=== PATIENT | male | born 1945 | race Caucasian/White ===

== ENCOUNTER 2018-08-19 10:39 | Inpatient (IN) ==
[2018-08-19] MEDS ORDERED: Sodium Chlor 0.9% Inj 500 ML IV.SIG ONE ×3 (11:17→20:00)
--- NOTE | 2018-08-19 11:23 | ED ---
HPI General Chief Complaint: Dizziness Stated Complaint: vomiting Time Seen by Provider: 08/19/18 10:42 Source: patient and RN notes reviewed Mode of arrival: EMS Limitations: no limitations History of Present Illness HPI Narrative: 73-year-old male presents to the emergency department via EMS for evaluation of dizziness. Patient states he was standing waiting for the past when he felt dizzy around 845 this morning.Patient states that he took a nitro which did not improve his dizziness. Patient then went home and took 2 more nitro which also did not improve his dizziness.Patient states that he feels like he is "swimming". He denies any syncope. States he had a hard time walking to the dizziness. He does report an episode of vomiting and diarrhea. Patient denies any chest pain or shortness breath. No headache. No abdominal pain. He reports generalized weakness. Patient states he has history of cardiac stents. [facility] in May which he states showed severe disease. Patient states that he is due to have a CABG the week of which is to be scheduled. He states that he recently had a carotid ultrasound, but does not know the results. He is due to have an echocardiogram next month. 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 Patient states that he has had small episodes of dizziness that lasted a few seconds in the past, but is never had dizziness like this that lasted so long. Patient reports chronic "smoker's cough". He denies any fevers or chills. Moderate severity. MD complaint: Reports dizziness and difficulty walking Onset (ago): hour(s) (3) Time: 08:45 Timing: sudden onset Description: Reports sense of movement, "room spinning", off-balance and difficulty walking History of trauma: No Severity: moderate Relieving factors: nothing Exacerbating factors: nothing Associated symptoms: Reports weakness, nausea and vomiting; Denies chest pain, confusion, diaphoresis, fever, chills, rash, shortness of breath, syncope and vision changes Related Data Home Medications Medication Instructions Recorded Confirmed aspirin 325 mg PO DAILY 08/19/18 08/19/18 bupropion HCl [Wellbutrin XL] mg PO QAM 08/19/18 nitroglycerin [Nitrostat] 0.4 mg SUBLINGUAL Q5-15M PRN 08/19/18 08/19/18 Allergies Allergy/AdvReac Type Severity Reaction Status Date / Time No Known Allergies Allergy Verified 08/19/18 10:47 Review of Systems ROS: all other systems reviewed are negative [facility] Medical History Medical History Colitis (Acute) Heart attack (Acute) High cholesterol (Acute) Hypertension (Acute) Surgical History Surgical History History of cardiac catheterization (Acute) Hx of tonsillectomy (Acute) Social History Social History Substance History: No History of Abuse Smoking Status: Heavy tobacco smoker Tobacco Type: Cigarettes How Often Do You Have a Drink Containing Alcohol: Never Recent Travel in [facility] within the Last 8 Weeks: No Recent Out of Country Travel within the Last 8 Weeks: No Immunization History Tetanus Immunization: >5 Years Exam Narrative Exam Narrative: GENERAL: Well-nourished, well-developed elderly male patient, afebrile. SKIN: Focused skin assessment warm/dry. No lacerations or abrasions. HEAD: Normocephalic. Atraumatic. EYES: No scleral icterus. No injection or drainage. Nystagmus noted. PERRLA. EOM intact. ENT: Mucosa pink and moist. No erythema or exudates. No uvular edema. No uvular , palatal, or tonsillar deviation. Airway patent. Nasal turbinates appear normal without nasal blood, purulent drainage or septal hematoma. Bilateral tympanic membranes clear without erythema or perforation. NECK: Supple, trachea midline. No JVD or lymphadenopathy. CARDIOVASCULAR: Regular rate and rhythm without murmurs, gallops, or rubs. RESPIRATORY: Breath sounds equal bilaterally. No accessory muscle use. Lung sounds are clear to auscultation GASTROINTESTINAL: Abdomen soft, non-tender, nondistended. MUSCULOSKELETAL: No cyanosis, or edema. Bilateral upper and lower extremity strength 5/5. All extremities are neurovascularly intact. BACK: Nontender without obvious deformity. No CVA tenderness. NEUROLOGICAL: Awake and alert. Cranial nerves II through XII intact. Motor and sensory grossly within normal limits. Five out of 5 muscle strength in all muscle groups. Normal speech. Finger to nose is normal bilaterally. Heel to lenz is normal bilaterally. Course Initial Documented Vital Signs Temperature 97.5 F L 08/19/18 10:47 Pulse Rate 91 H 08/19/18 10:47 Respiratory Rate 14 08/19/18 10:47 Blood Pressure 148/76 H 08/19/18 10:47 Pulse Oximetry 94 L 08/19/18 10:47 Last Documented Vital Signs Temperature 97.5 F L 08/19/18 10:47 Pulse Rate 88 08/19/18 11:40 Respiratory Rate 14 08/19/18 10:47 Blood Pressure 148/76 H 08/19/18 10:47 Pulse Oximetry 93 L 08/19/18 12:04 Medical Decision Making MDM Narrative Medical decision making narrative: 73-year-old male presents to the emergency department via EMS for evaluation of dizziness. Patient has significant cardiac history. IV access obtained. EKG shows sinus rhythm, heart rate 89, no acute ST changes. CBC, CMP, TSH, magnesium, CK, troponin, PTT, PT/INR, UA, chest x-ray, CT of the brain are ordered and pending. Patient is given NS 500 ml bolus. Orthostatic VS are ordered and pending. CBC shows hemoconcentration with hemoglobin of 17.2. CMP shows elevated BUN 20 , creatinine 1.68. TSH is 3.850. Magnesium is 1.6. CK is 82. Troponin is less than 0.02. PTT is 27.5. PT/INR is 11.2/1.1. Chest x-ray shows interstitial prominence of the lower lung zones of uncertain chronicity, otherwise no acute abnormality is identified. CT of the brain shows no acute intracranial abnormality. Orthostatic vital signs reveal slight orthostatic hypotension with a supine blood pressure 138/74 and standing blood pressure 118/ 57. Patient's oxygen saturation dropped to 88% on room air and patient was placed on 2 L O2 nasal cannula with improvement to 93%. CT of the chest is ordered and shows Spiculated noncalcified mass within the right lower lobe measuring 2.8 x 3.1 x 3.1 cm consistent with bronchogenic carcinoma until proven otherwise. This lesion is amenable to percutaneous biopsy if requested, Scattered emphysematous changes, Posterior bibasilar atelectatic changes, Biapical pleural thickening, Coronary artery ossification, 9.6 cm cystic lesion in the expected region of the upper pole of the right kidney, Small hiatal hernia, Degenerative changes throughout the thoracic spine. Patient will be admitted for dizziness, orthostatic hypotension, lung mass, hypoxia. Dr. Duke accepted admission. Medical Screen Exam Complete: Yes Emergency Medical Condition: Yes Differential Diagnosis Differential Diagnosis: ACS vs. metabolic derangement vs. orthostatic hypotension vs. vertigo vs. CVA vs. intracranial abnormality Lab Data Result diagrams: 08/19/18 11:15 08/19/18 11:15 Lab Results 08/19/18 08/19/18 08/19/18 Range/Units 11:15 11:15 11:15 WBC 8.1 (4.0-11.0) th/mm3 RBC 5.41 (4.50-5.90) mil/mm3 Hgb 17.2 H (13.0-17.0) gm/dL Hct 49.6 (39.0-51.0) % MCV 91.7 (80.0-100.0) fL MCH 31.7 (27.0-34.0) pg MCHC 34.6 (32.0-36.0) % RDW 14.8 (11.6-17.2) % Plt Count 146 L (150-450) th/mm3 MPV 7.8 (7.0-11.0) fL Neut % (Auto) 77.5 H (16.0-70.0) % Lymph % (Auto) 11.6 (9.0-44.0) % [place] % (Auto) 5.7 (0.0-8.0) % Eos % (Auto) 4.5 H (0.0-4.0) % Baso % (Auto) 0.7 (0.0-2.0) % Neut # (Auto) 6.3 (1.8-7.7) th/mm3 Lymph # (Auto) 0.9 L (1.0-4.8) th/mm3 [place] # (Auto) 0.5 (0.0-0.9) th/mm3 Eos # (Auto) 0.4 (0.0-0.4) th/mm3 Baso # (Auto) 0.1 (0.0-0.2) th/mm3 WBC Differential . Differential Comment Auto diff final PT 11.2 (9.8-11.6) sec INR 1.1 Ratio APTT 27.5 (24.3-30.1) sec Sodium 141 (136-145) meq/L Potassium 3.9 (3.5-5.1) meq/L Chloride 108 H (98-107) meq/L Carbon Dioxide 24.2 (21.0-32.0) meq/L Anion Gap 9 (5-15) meq/L BUN 20 H (7-18) mg/dL Creatinine 1.68 H (0.60-1.30) mg/dL Estimated GFR 40 L (>89) mL/min Random Glucose 105 (74-106) mg/dL Calcium 8.5 (8.5-10.1) mg/dL Magnesium 1.6 (1.5-2.5) mg/dL Total Bilirubin 0.8 (0.2-1.0) mg/dL AST 15 (15-37) U/L ALT 22 (12-78) U/L Alkaline Phosphatase 138 H (45-117) U/L Total Creatine Kinase 82 (39-308) U/L Troponin I Less than 0.02 L (0.02-0.05) ng/mL Total Protein 7.7 (6.4-8.2) g/dL Albumin 3.6 (3.4-5.0) g/dL TSH (0.358-3.740) uIU/mL 08/19/18 Range/Units 11:15 WBC (4.0-11.0) th/mm3 RBC (4.50-5.90) mil/mm3 Hgb (13.0-17.0) gm/dL Hct (39.0-51.0) % MCV (80.0-100.0) fL MCH (27.0-34.0) pg MCHC (32.0-36.0) % RDW (11.6-17.2) % Plt Count (150-450) th/mm3 MPV (7.0-11.0) fL Neut % (Auto) (16.0-70.0) % Lymph % (Auto) (9.0-44.0) % [place] % (Auto) (0.0-8.0) % Eos % (Auto) (0.0-4.0) % Baso % (Auto) (0.0-2.0) % Neut # (Auto) (1.8-7.7) th/mm3 Lymph # (Auto) (1.0-4.8) th/mm3 [place] # (Auto) (0.0-0.9) th/mm3 Eos # (Auto) (0.0-0.4) th/mm3 Baso # (Auto) (0.0-0.2) th/mm3 WBC Differential Differential Comment PT (9.8-11.6) sec INR Ratio APTT (24.3-30.1) sec Sodium (136-145) meq/L Potassium (3.5-5.1) meq/L Chloride (98-107) meq/L Carbon Dioxide (21.0-32.0) meq/L Anion Gap (5-15) meq/L BUN (7-18) mg/dL Creatinine (0.60-1.30) mg/dL Estimated GFR (>89) mL/min Random Glucose (74-106) mg/dL Calcium (8.5-10.1) mg/dL Magnesium (1.5-2.5) mg/dL Total Bilirubin (0.2-1.0) mg/dL AST (15-37) U/L ALT (12-78) U/L Alkaline Phosphatase (45-117) U/L Total Creatine Kinase (39-308) U/L Troponin I (0.02-0.05) ng/mL Total Protein (6.4-8.2) g/dL Albumin (3.4-5.0) g/dL TSH 3.850 H (0.358-3.740) uIU/mL Imaging Data Radiologist's impression: Chest X-Ray 08/19/18 11:17 CONCLUSION: Interstitial prominence in the lower lung zones of uncertain chronicity. Otherwise, no acute abnormality is identified. Head CT 08/19/18 11:17 CONCLUSION: No acute intracranial abnormality is identified. . Chest CT 08/19/18 12:07 CONCLUSION: 1. Spiculated noncalcified mass within the right lower lobe measuring 2.8 x 3.1 x 3.1 cm consistent with bronchogenic carcinoma until proven otherwise. This lesion is amenable to percutaneous biopsy if requested. 2. Scattered emphysematous changes. 3. Posterior bibasilar atelectatic changes. 4. Biapical pleural thickening. 5. Coronary artery ossification. 6. 9.6 cm cystic lesion in the expected region of the upper pole of the right kidney. 7. Small hiatal hernia. 8. Degenerative changes throughout the thoracic spine. Discharge Plan Discharge Disposition Patient Disposition: 30 Still Patient Discharge Details Diagnosis: Orthostatic hypotension, Dizziness, Lung mass, Hypoxia Physicians Team ED Provider: Calixto Echeverria ED Midlevel Provider: Anita Cervantes Primary Care Provider: [facility],Physician [facility] /Orders / Referrals /Forms Prescriptions: No Action aspirin 325 mg Tablet 325 mg PO DAILY RF: 0 nitroglycerin [Nitrostat] 0.4 mg Tablet, Sublingual 0.4 mg SUBLINGUAL Q5-15M PRN (Reason: Chest Pain) RF: 0 bupropion HCl [Wellbutrin XL] 300 mg Tablet Extended Release 24 Hr PO QAM RF: 0 Status ED Status: Admitted Patient
[2018-08-19 11:49] LABS: Baso # (Auto) 0.1 th/mm3 (0.0-0.2); Baso % (Auto) 0.7 % (0.0-2.0); Eos # (Auto) 0.4 th/mm3 (0.0-0.4); Eos % (Auto) 4.5 % (0.0-4.0); Hematocrit 49.6 % (39.0-51.0); Hemoglobin 17.2 gm/dL (13.0-17.0); Lymph # (Auto) 0.9 th/mm3 (1.0-4.8); Lymph % (Auto) 11.6 % (9.0-44.0); Mean Corpuscular HGB Conc 34.6 % (32.0-36.0); Mean Corpuscular Hemoglobin 31.7 pg (27.0-34.0); Mean Corpuscular Volume 91.7 fL (80.0-100.0); Mean Platelet Volume 7.8 fL (7.0-11.0); Mono # (Auto) 0.5 th/mm3 (0.0-0.9); Mono % (Auto) 5.7 % (0.0-8.0); Neut # (Auto) 6.3 th/mm3 (1.8-7.7); Neut % (Auto) 77.5 % (16.0-70.0); Platelet Count 146 th/mm3 (150-450); Red Blood Count 5.41 mil/mm3 (4.50-5.90); Red Cell Distribution Width 14.8 % (11.6-17.2); White Blood Count 8.1 th/mm3 (4.0-11.0)
--- NOTE | 2018-08-19 12:01 | XR ---
EXAM DATE: 08/19/2018 11:53 AM EDT AGE/SEX: 73 years / Male INDICATIONS: Chest pain and dizziness. CLINICAL DATA: This is the patient's initial encounter. Patient reports that signs and symptoms have been present for 1 day and indicates a pain score of 4/10. MEDICAL/SURGICAL HISTORY: None. None. COMPARISON: No prior exams available for comparison. FINDINGS: Portable AP view of the chest demonstrates a normal-sized cardiac silhouette. EKG lines overlie the p atient. There is interstitial prominence in the lower lung zones bilaterally. No effusion, consolidat ion, or pneumothorax is identified. Bones and soft tissues demonstrate no acute abnormality. CONCLUSION: Interstitial prominence in the lower lung zones of uncertain chronicity. Otherwise, no acute abnormal ity is identified. Electronically signed by: Sam Weldon MD 08/19/2018 12:00 PM EDT
[2018-08-19 12:02] LABS: Activated Partial Thrombo Time 27.5 sec (24.3-30.1); INR 1.1 Ratio; Prothrombin Time 11.2 sec (9.8-11.6)
[2018-08-19 12:17] LABS: Albumin 3.6 g/dL (3.4-5.0); Anion Gap 9 meq/L (5-15); Aspartate Aminotransferase 15 U/L (15-37); Blood Urea Nitrogen 20 mg/dL (7-18); Calcium 8.5 mg/dL (8.5-10.1); Carbon Dioxide 24.2 meq/L (21.0-32.0); Chloride 108 meq/L (98-107); Glomerular Filtration Rate 40 mL/min (>89); Glucose,Random 105 mg/dL (74-106); Magnesium 1.6 mg/dL (1.5-2.5); Potassium 3.9 meq/L (3.5-5.1); Sodium 141 meq/L (136-145)
[2018-08-19 12:23] LABS: Alanine Aminotransferase 22 U/L (12-78); Alkaline Phosphatase 138 U/L (45-117); Total Protein 7.7 g/dL (6.4-8.2)
[2018-08-19 12:42] LABS: Creatine Kinase 82 U/L (39-308)
--- NOTE | 2018-08-19 12:51 | CT ---
EXAM DATE: 08/19/2018 12:45 PM EDT AGE/SEX: 73 years / Male INDICATIONS: Patient complains of dizziness. CLINICAL DATA: This is the patient's initial encounter. Patient reports that signs and symptoms have been present for 1 day and indicates a pain score of 0/10. MEDICAL/SURGICAL HISTORY: Hypertension. Heart disease. [place] None. RADIATION DOSE: 54.93 CTDI (mGy) COMPARISON: No prior exams available for comparison. TECHNIQUE: CT of the head without contrast. Using automated exposure control and adjustment of the mA and/or kV according to patient size, radiation dose was kept as low as reasonably achievable to ob tain optimal diagnostic quality images. DICOM format image data is available electronically for revi ew and comparison. FINDINGS: Cerebrum: There is mild generalized atrophy and ventricles are normal given the degree of atrophy. M ild periventricular white matter change is present. There is calcification along the falx cerebri. No midline shift, mass lesion, hemorrhage or acute infarction. No extraaxial fluid collections are see n. Posterior Fossa: The cerebellum and brainstem demonstrate no acute abnormality. The 4th ventricle is midline. The cerebellopontine angle is within normal limits. Extracranial: The visualized sinuses are clear. Skull: The calvaria is intact. No skull fracture. CONCLUSION: No acute intracranial abnormality is identified. . Electronically signed by: Sam Weldon MD 08/19/2018 12:50 PM EDT
--- NOTE | 2018-08-19 13:02 | CT ---
EXAM DATE: 08/19/2018 12:48 PM EDT AGE/SEX: 73 years / Male INDICATIONS: Patient complains of dizziness. No chest complaints. CLINICAL DATA: This is the patient's initial encounter. Patient reports that signs and symptoms have been present for 1 day and indicates a pain score of 0/10. MEDICAL/SURGICAL HISTORY: Hypertension. Heart disease. [place] None. RADIATION DOSE: 8.51 CTDI (mGy) COMPARISON: No prior exams available for comparison. TECHNIQUE: Multiple contiguous axial images were obtained through the chest without contrast. Image s were obtained in suspended respiration using multiple row detector helical technique. Using automa jean carlos exposure control and adjustment of the mA and/or kV according to patient size, radiation dose was kept as low as reasonably achievable to obtain optimal diagnostic quality images. DICOM format imag e data is available electronically for review and comparison. FINDINGS: Lungs: There is a spiculated noncalcified mass within the right lower lobe measuring 2.8 x 3.1 x 3.1 cm consistent with bronchogenic carcinoma until proven otherwise. This lesion is amenable to percuta neous biopsy if requested. Scattered emphysematous changes are noted bilaterally. Posterior bibasilar atelectatic changes are noted bilaterally. Mediastinum: There is good visualization of the great vessels of the middle mediastinum. No evidenc e of mediastinal or hilar adenopathy/mass. Coronary artery calcifications are noted. Pleurae: Biapical pleural thickening is noted. Axillae: Unremarkable. Bony Structures: Degenerative changes are noted throughout the thoracic spine. Miscellaneous: The examination was extended to include the upper abdomen, and both adrenal glands ar e normal in size and configuration. A small hiatal hernia is noted. There is a 9.6 cm cystic lesion i n the expected region of the upper pole of the right kidney. CONCLUSION: 1. Spiculated noncalcified mass within the right lower lobe measuring 2.8 x 3.1 x 3.1 cm consistent with bronchogenic carcinoma until proven otherwise. This lesion is amenable to percutaneous biopsy if requested. 2. Scattered emphysematous changes. 3. Posterior bibasilar atelectatic changes. 4. Biapical pleural thickening. 5. Coronary artery ossification. 6. 9.6 cm cystic lesion in the expected region of the upper pole of the right kidney. 7. Small hiatal hernia. 8. Degenerative changes throughout the thoracic spine. Electronically signed by: Jori Day MD 08/19/2018 1:01 PM EDT
[2018-08-19] MEDS ORDERED: Bisacodyl 10 MG Supp RECTAL PRN (13:35)
[2018-08-19] MEDS ORDERED: Acetaminophen 325 MG Tablet PO PRN (13:37)
--- NOTE | 2018-08-19 13:41 | P.HP ---
History of Present Illness Primary Care Physician: [facility] History of Present Illness: 73-year-old male presents to the emergency department via EMS for evaluation of dizziness. Patient states he was standing waiting for the past when he felt dizzy around 845 this morning.Patient states that he took a nitro which did not improve his dizziness. Patient then went home and took 2 more nitro which also did not improve his dizziness.Patient states that he feels like he is "swimming ". He denies any syncope. States he had a hard time walking to the dizziness. He does report an episode of vomiting and diarrhea. Patient denies any chest pain or shortness breath. No headache. No abdominal pain. He reports generalized weakness. Patient states he has history of cardiac stents. [facility] which he states showed severe disease. Patient states that he is due to have a CABG the week of which is to be scheduled. He states that he recently had a carotid ultrasound, but does not know the results. He is due to have an echocardiogram next month. 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 Patient states that he has had small episodes of dizziness that lasted a few seconds in the past, but is never had dizziness like this that lasted so long. Patient reports chronic "smoker's cough". He denies any fevers or chills. Moderate severity. Reports sense of movement, "room spinning", off-balance and difficulty walking Associated symptoms: Reports weakness, nausea and vomiting; Denies chest pain, confusion, diaphoresis, fever, chills, rash, shortness of breath, syncope and vision changes Family history: Father melanoma, at the age of [address] Mother breast CA at 86 ya Brother kidney stones Sister of CT at age of 52, also had lupus and scarlet fever as a chils Review of Systems All other systems reviewed negative except as stated in HPI PMFSH - History History Provided By: Patient - Medical History Medical History: Medical History (Last Reviewed 08/19/18 @ 13:40 by Estela Duke MD) Colitis Heart attack High cholesterol Hypertension - Surgical History Surgical History: Surgical History (Last Reviewed 08/19/18 @ 13:40 by Estela Duke MD) History of cardiac catheterization Hx of tonsillectomy - Social History I have reviewed the patient's Social History: Yes - Tobacco History Tobacco Use In Past 30 Days: Yes Smoking Status: Heavy tobacco smoker (1 ppd for 26 years) Tobacco Type: Cigarettes - Alcohol History How Often Do You Have a Drink Containing Alcohol: Never - Substance Use History Substance History: No History of Abuse - Travel History Recent Travel in the [place] Within the Last 8 Weeks: No Recent Travel Out of the Country Within the Last 8 Weeks: No - Immunization History Tetanus Immunization: >5 Years Medications and Allergies Active Medications: Active Medications Acetaminophen (Tylenol) 650 mg PO Q4H PRN PRN Reason: Temp > 100.4 Al Hydroxide/Mg Hydroxide (Milk Of Magnesia Liq) 30 ml PO Q12H PRN PRN Reason: Mild Constipation Aspirin (Aspirin) 325 mg PO DAILY TIMOTHY Bisacodyl (Dulcolax Supp) 10 mg RECTAL DAILY PRN PRN Reason: SEVERE CONSITIPATION Enoxaparin Sodium (Lovenox Inj) 30 mg SQ DAILY TIMOTHY Lactulose (Lactulose Liq) 30 ml PO DAILY PRN PRN Reason: SEVERE CONSITIPATION Ondansetron HCl (Zofran Inj) 4 mg IV.PUSH Q6H PRN PRN Reason: NAUSEA OR VOMITING Senna/Docusate Sodium (Brenda-Colace) 1 tab PO BID TIMOTHY Sennosides (Senokot) 17.2 mg PO Q12H PRN PRN Reason: Moderate Constipation Sodium Chloride (Ns Flush) 2 ml IV.FLUSH PRN PRN PRN Reason: FLUSH AFTER USING IV ACCESS Allergies Allergy/AdvReac Type Severity Reaction Status Date / Time No Known Allergies Allergy Verified 08/19/18 10:47 Home Medications Medication Instructions Recorded Confirmed Type aspirin 325 mg PO DAILY 08/19/18 08/19/18 History bupropion HCl [Wellbutrin XL] mg PO QAM 08/19/18 History nitroglycerin [Nitrostat] 0.4 mg SUBLINGUAL Q5-15M PRN 08/19/18 08/19/18 History Exam Vital signs: Vital Signs 08/19/18 10:47 08/19/18 11:40 08/19/18 12:04 Temperature 97.5 F L Pulse Rate 91 H 88 Respiratory Rate 14 Blood Pressure 148/76 H Pulse Oximetry 94 L 93 L Intake & Output 08/18/18 08/19/18 08/19/18 18:59 06:59 18:59 Intake Total 500 / 500 Balance 500 / 500 Weight 79.379 kg Intake: IV 500 / 500 NS Inj 500 ML @ Wide Open IV. 500 / 500 SIG BOLUS ONE Rx#:[id number] Narrative: GENERAL: 73 yo male, appears in nad. SKIN: Warm and dry. HEAD: Atraumatic. Normocephalic. EYES: Pupils equal and round. No scleral icterus. No injection or drainage. ENT: No nasal bleeding or discharge. Mucous membranes pink and moist. NECK: Trachea midline. No JVD. CARDIOVASCULAR: Regular rate and rhythm. RESPIRATORY: No accessory muscle use. Clear to auscultation. Breath sounds equal bilaterally. GASTROINTESTINAL: Abdomen soft, non-tender, nondistended. Hepatic and splenic margins not palpable. MUSCULOSKELETAL: Extremities without clubbing, cyanosis, or edema. No obvious deformities. NEUROLOGICAL: Awake and alert. No obvious cranial nerve deficits. Motor grossly within normal limits. Five out of 5 muscle strength in the arms and legs. Normal speech. PSYCHIATRIC: Appropriate mood and affect; insight and judgment normal. Results - Labs CBC & Chem 7: 08/19/18 11:15 08/19/18 11:15 Labs: Laboratory Results - last 24 hr 08/19/18 08/19/18 08/19/18 11:15 11:15 11:15 WBC 8.1 RBC 5.41 Hgb 17.2 H Hct 49.6 MCV 91.7 MCH 31.7 MCHC 34.6 RDW 14.8 Plt Count 146 L MPV 7.8 Neut % (Auto) 77.5 H Lymph % (Auto) 11.6 [place] % (Auto) 5.7 Eos % (Auto) 4.5 H Baso % (Auto) 0.7 Neut # (Auto) 6.3 Lymph # (Auto) 0.[address] # (Auto) 0.5 Eos # (Auto) 0.4 Baso # (Auto) 0.1 WBC Differential . Differential Comment Auto diff final PT 11.2 INR 1.1 APTT 27.5 Sodium 141 Potassium 3.9 Chloride 108 H Carbon Dioxide 24.2 Anion Gap 9 BUN 20 H Creatinine 1.68 H Estimated GFR 40 L Random Glucose 105 Calcium 8.5 Magnesium 1.6 Total Bilirubin 0.8 AST 15 ALT 22 Alkaline Phosphatase 138 H Total Creatine Kinase 82 Troponin I Less than 0.02 L Total Protein 7.7 Albumin 3.6 TSH 08/19/18 11:15 WBC RBC Hgb Hct MCV MCH MCHC RDW Plt Count MPV Neut % (Auto) Lymph % (Auto) [place] % (Auto) Eos % (Auto) Baso % (Auto) Neut # (Auto) Lymph # (Auto) [place] # (Auto) Eos # (Auto) Baso # (Auto) WBC Differential Differential Comment PT INR APTT Sodium Potassium Chloride Carbon Dioxide Anion Gap BUN Creatinine Estimated GFR Random Glucose Calcium Magnesium Total Bilirubin AST ALT Alkaline Phosphatase Total Creatine Kinase Troponin I Total Protein Albumin TSH 3.850 H - Imaging Impressions Chest X-Ray 08/19/18 11:17 CONCLUSION: Interstitial prominence in the lower lung zones of uncertain chronicity. Otherwise, no acute abnormality is identified. Head CT 08/19/18 11:17 CONCLUSION: No acute intracranial abnormality is identified. . Chest CT 08/19/18 12:07 CONCLUSION: 1. Spiculated noncalcified mass within the right lower lobe measuring 2.8 x 3.1 x 3.1 cm consistent with bronchogenic carcinoma until proven otherwise. This lesion is amenable to percutaneous biopsy if requested. 2. Scattered emphysematous changes. 3. Posterior bibasilar atelectatic changes. 4. Biapical pleural thickening. 5. Coronary artery ossification. 6. 9.6 cm cystic lesion in the expected region of the upper pole of the right kidney. 7. Small hiatal hernia. 8. Degenerative changes throughout the thoracic spine. Caprini VTE Risk Assessment Caprini VTE Risk Assessment: Moderate/High Risk (score >= 2) Caprini Risk Assessment Model: Point Value = 1 Point Value = 2 Point Value = 3 Point Value = 5 Age 41-60 Minor surgery BMI > 25 kg/m2 Swollen legs Varicose veins or History of unexplained or recurrent spontaneous Oral contraceptives or hormone replacement Sepsis (< 1 month) Serious lung disease, including pneumonia (< 1 month) Abnormal pulmonary function Acute myocardial infarction Congestive heart failure (< 1 month) History of inflammatory bowel disease Medical patient at bed rest Age 61-74 Arthroscopic surgery Major open surgery (> 45 min) Laparoscopic surgery (> 45 min) Malignancy Confined to bed (> 72 hours) Immobilizing plaster cast Central venous access Age >= 75 History of VTE Family history of VTE Factor V Leiden Prothrombin [id number] Lupus anticoagulant Anticardiolipin antibodies Elevated serum homocysteine Heparin-induced thrombocytopenia Other congenital or acquired thrombophilia Stroke (< 1 month) Elective arthroplasty Hip, pelvis, or leg fracture Acute spinal cord injury (< 1 month) Prophylaxis Regimen: Total Risk Factor Score Risk Level Prophylaxis Regimen 0-1 Low Early ambulation 2 Moderate Order ONE of the following: *Sequential Compression Device (SCD) *Heparin 5000 units SQ BID 3-4 Higher Order ONE of the following medications: *Heparin 5000 units SQ TID *Enoxaparin/Lovenox 40 mg SQ daily (WT < 150 kg, CrCl > 30 mL/min) *Enoxaparin/Lovenox 30 mg SQ daily (WT < 150 kg, CrCl > 10-29 mL/min) *Enoxaparin/Lovenox 30 mg SQ BID (WT < 150 kg, CrCl > 30 mL/min) AND/OR *Sequential Compression Device (SCD) 5 or more Highest Order ONE of the following medications: *Heparin 5000 units SQ TID (Preferred with Epidurals) *Enoxaparin/Lovenox 40 mg SQ daily (WT < 150 kg, CrCl > 30 mL/min) *Enoxaparin/Lovenox 30 mg SQ daily (WT < 150 kg, CrCl > 10-29 mL/min) *Enoxaparin/Lovenox 30 mg SQ BID (WT < 150 kg, CrCl > 30 mL/min) AND *Sequential Compression Device (SCD) Assessment and Plan - Plan CAD with 3 vessel disease and plans for CABG this month at [place] HTN HLD Hypoxia with new lung mass on CT scan chest Syncope/ dizziness Orthostatic hypotension JASON poss on CKD ( unknown baseline kidney function) Cr on admission 1.68 likely dehydration Hemoconcentration with hemoglobin of 17.2. Tobaccoism CT of the chest reviewed and findings discussed with ED PA shows Spiculated noncalcified mass within the right lower lobe measuring 2.8 x 3.1 x 3.1 cm consistent with bronchogenic carcinoma until proven otherwise. This lesion is amenable to percutaneous biopsy if requested, Scattered emphysematous changes, Posterior bibasilar atelectatic changes, Biapical pleural thickening, Coronary artery ossification, 9.6 cm cystic lesion in the expected region of the upper pole of the right kidney, Small hiatal hernia, Degenerative changes throughout the thoracic spine. CT of the brain shows no acute intracranial abnormality. Do 2D ECHO , carotid US. Consult neurology Patient's oxygen saturation dropped to 88% on room air and patient was placed on 2 L O2 nasal cannula with improvement to 93%, continue O2 supplement keep O2 sat> 92%. Duonebs as need. Consult pulm for further eval Consult cardiology as patient with extensive cardiac h/o Start gentle IVF. Monitor kidney function if doesn't improve do kidney US and consult nephro. UA is normal. Avoid nephrotoxic agents Careful with fluids unknown if patient has CHF, CXR and clinically no signs of CHF. Will check BNP Nicotine patch, counselled extensively Check lipid panel, a1c, cmp, cbc. Restart home meds once reconcile meds done. [facility] p[facility] teds. lovenox per renal dose Discussed Condition With: patient, nurse, ED physician / PA
[2018-08-19] MEDS ORDERED: Enoxaparin Inj 40 MG/0.4 ML Syringe SQ SCH (13:45)
[2018-08-19 13:54] LABS: Bilirubin,Urine Negative (Negative); Clarity,Urine Clear (Clear); Color,Urine Yellow (Yellw/Straw); Glucose,Urine (UA) Negative (Negative); Hyaline Casts,Urine 3 /lpf (0-3); Leukocyte Esterase,Urine Negative (Negative); Mucus,Urine Few /lpf (Occasional); Nitrite,Urine Negative (Negative); Specific Gravity,Urine 1.017 (1.002-1.035)
[2018-08-19 15:04] LABS: ABG Base Excess -2.7 mmol/L (-2-2); ABG PCO2 37 mmHg (38-42); ABG PO2 67 mmHg (61-120)
[2018-08-19] MEDS: Azithromycin Inj 500 MG in Sodium Chlor 0.9% Inj 250 ML IV.SIG SCH (17:49)
[2018-08-19] MEDS: MethylPREDNISolone Sod Succinate Inj 125 MG/2 ML Vial IV.PUSH SCH (17:50)
[2018-08-19] MEDS: Budesonide-Formoterol 160/4.5 MCG 6 GM Inhaler INH SCH ×2 (17:50→21:35)
[2018-08-19] MEDS ORDERED: Sodium Chloride 0.9% 2 ML Flush PRN IV.FLUSH (19:27)
[2018-08-19] MEDS ORDERED: Metoprolol Tartrate 25 MG Tablet PO SCH (21:00)
--- NOTE | 2018-08-19 21:11 | MB ---
cc: Kadi Jones MD DATE: 08/19/2018 HISTORY OF PRESENT ILLNESS: The patient is a 73-year-old male with past medical history of hypertension, coronary artery disease, hyperlipidemia, who presented to [facility] ED via EMS for evaluation of dizziness. The patient denies any syncope or loss of consciousness. [facility] On arrival to the ED, a CT scan of the chest without contrast was obtained which showed a spiculated noncalcified mass within the right lower lobe measuring 2.8 x 3.1 x 3.1 cm, scattered emphysematous changes and bibasilar reticular atelectatic changes. He had ABG on room air, which showed a pH of 7.38, CO2 37, PaO2 67, bicarbonate of 22 and saturation 88%. The patient is currently on 4 liters oxygen with saturation of 96%. His laboratory data showed acute kidney injury with a BUN of 20 and creatinine 1.68. Due to his dizziness, CT scan of the brain was obtained which showed no acute intracranial findings. Pulmonary Medicine was consulted for abnormal CT chest and COPD. He denies any use of oxygen at home. The patient denies any chest pain or worsening of shortness of breath from baseline. In addition, he denies any hemoptysis, weight loss or changes in appetite. He remains an active smoker with a [id number] history of smoking. He reports using Symbicort and rescue inhaler approximately 6 months ago. He denies any cough or any constitutional symptoms. In addition, he denies any wheezing or any prior history of intubation. PAST MEDICAL HISTORY: Significant for hypertension, COPD, hyperlipidemia, coronary artery disease. PAST SURGICAL HISTORY: Previous cardiac catheterization, previous tonsillectomy. FAMILY HISTORY: Melanoma runs in the family. In addition, his mom had breast cancer. ALLERGIES: NO KNOWN DRUG ALLERGIES. HOME MEDICATIONS: Include: 1. Nitrostat sublingual. 2. Aspirin. 3. Wellbutrin. SOCIAL HISTORY: Quit smoking in 2006, active smoker with [id number] history of smoking. REVIEW OF SYSTEMS: As per HPI. The rest of review of systems unremarkable. PHYSICAL EXAMINATION: GENERAL: A 73-year-old male lying in bed, in no acute respiratory distress. VITAL SIGNS: Afebrile, pulse of 94, respiratory rate 15, blood pressure 133/64, saturation 96% on 4 liter oxygen. HEENT: Atraumatic, normocephalic. Pupils are equal, round, reactive to accommodation. Extraocular muscles intact. Conjunctivae pink. Nonicteric sclerae. Oral mucosa within normal. NECK: Supple. No JVD, adenopathy or thyromegaly. Trachea in the midline. CARDIOVASCULAR: Regular rate and rhythm. Normal S1, S2. No murmurs, rubs or gallops noted. PULMONARY: Bilateral equal air entry with few coarse breath sounds. ABDOMEN: Soft, nontender. No distention. Positive bowel sounds. EXTREMITIES: No cyanosis, clubbing or edema. NEUROLOGIC: No focal sensory deficit. LABORATORY DATA: WBC 8.1, hemoglobin 17, hematocrit 49, platelet count 146. Sodium 141, potassium 3.9, chloride 108, CO2 24, BUN 20, creatinine 1.68, glucose of 105. BNP 39. TSH 3.85. RADIOGRAPHIC STUDIES: CT scan of the brain showed no acute intracranial findings. CT chest showed a right lower lobe lung mass spiculated 2.8 x 3.1 x 3.1 cm and COPD changes. ASSESSMENT AND PLAN: 1. Acute hypoxemic respiratory insufficiency. 2. Chronic obstructive pulmonary disease exacerbation. 3. Right lower lobe spiculated noncalcified mass 2.8 x 3.1 x 3.1 cm. Rule out bronchogenic carcinoma. 4. Bibasilar atelectasis. 5. Active tobacco use. 6. Coronary artery disease. 7. Hypertension. 8. Hyperlipidemia. RECOMMENDATIONS: 1. We will continue with oxygen and maintain sats above 92%. 2. Place the patient on bronchodilators in the form of DuoNeb every 4 hours plus every 2 hours p.r.n. for shortness of breath and will add Symbicort 160/4.5 2 puffs b.i.d. 3. Start Solu-Medrol 60 mg IV every 8 hours. 4. BiPAP p.r.n. for respiratory distress. 5. Place on empiric antibiotics, azithromycin and monitor for signs of infection, which include fever and WBC. 6. Check sputum culture with Gram stain. 7. PFT to assess the severity of his obstructive lung disease. 8. CT scan of the chest reviewed and discussed with the patient. He will need either a CT-guided lung biopsy or fiberoptic bronchoscopy with transbronchial biopsy to rule out a bronchogenic carcinoma. The patient states that he will think about both procedures and give us his decision in the next 24-48 hours. 9. We will need staging workup once pathology confirms bronchogenic carcinoma. 10. The patient is counseled regarding smoking cessation. 11. Further recommendations will be based on hospital course. Thank you for this consultation and allowing us to participate in this patient's care. MD MARCOS Crow/giovanni , 03:29 PM , 03:42 PM
[2018-08-19] MEDS: Sod Chloride 0.9% Inj 1,000 ML IV.SIG SCH (21:32)
[2018-08-19] MEDS: Senna/Docusate Sodium 8.6/50 MG Tablet PO SCH (21:33)
[2018-08-19] MEDS: Sodium Chloride 0.9% 2 ML Flush BID IV.FLUSH SCH (21:35)
[2018-08-19] MEDS: Metoprolol Tartrate 25 MG Tablet PO SCH (22:24)
--- NOTE | 2018-08-19 22:52 | ECG ---
Date Performed: 08/19/2018 Time Performed: 19:47:40 PTAGE: 73 years EKG: Sinus rhythm NORMAL ECG PREVIOUS TRACING : 08/19/2018 10.48 DOCTOR: Eleuterio Francois Interpretating Date/Time 08/19/2018 22:51:20
--- NOTE | 2018-08-19 23:29 | MB ---
cc: Caitlyn Ryan MD DATE: 08/19/2018 REASON FOR CONSULTATION: Chest pain. HISTORY OF PRESENT ILLNESS: Mr. Newton is a pleasant 73-year-old man who does have a prior history of multiple cardiac stents. He reports that he has chest pain with brisk walking. He underwent a cardiac catheterization and, in fact, has severe multivessel disease. He is scheduled in [place] for a CABG. He reports he was started on some long-acting nitroglycerin and has been remarkably stable. He, in fact, denies any episodes of chest pain to me. The patient had some dizziness this morning that did not improve over the course of the morning and he subsequently presented into the emergency room. The patient has extremely poor p.o. intake of fluids. He still essentially refuses to drink any water and is drinking some more tea here. PAST MEDICAL HISTORY: Significant for hypertension, hyperlipidemia, CAD with multiple stents, colitis. CURRENT MEDICATIONS: Include: 1. Albuterol. 2. Aspirin. 3. Zithromax 4. Lovenox. 5. Lisinopril. 6. Metoprolol. 7. Nicotine patch. REVIEW OF SYSTEMS: Except as mentioned in the HPI, all 12 systems are negative. PHYSICAL EXAMINATION: VITAL SIGNS: 94, 133/64 with a heart rate of 87. GENERAL: He is an overweight man who is in no apparent distress. NECK: Free from JVD. LUNGS: Bilaterally clear to auscultation. CARDIOVASCULAR: He has a normal S1 and S2. I did not appreciate any murmurs, rubs or gallops. ABDOMEN: Soft. EXTREMITIES: Free from edema. DIAGNOSTIC DATA: Chest CT does show a right lower lobe spiculated mass of 3 x 3 x 2.8 cm. LABORATORY DATA: Lab values significant for troponin of less than 0.02. His creatinine is 1.68. EKG shows normal sinus rhythm without any acute ST changes. IMPRESSION: Coronary artery disease - stable angina - The patient does have extremely stable angina and has been well managed as an outpatient. After discussion, he is not really interested in moving up his surgery at this time. We will continue with conservative medical management while he awaits his bypass later in August. Orthostasis - The patient has essentially low to no p.o. fluid intake except for some caffeine. I am going to hydrate him and we will follow along. His rhythm is otherwise stable. I suspect that this is the most likely etiology to his dizziness. Spiculated mass - This is being worked up by the primary team. MD YAMILET Kate/shashank , 05:51 PM , 06:00 PM
--- NOTE | 2018-08-19 23:52 | ECG ---
Date Performed: 08/19/2018 Time Performed: 10:48:32 PTAGE: 73 years EKG: Sinus rhythm INCOMPLETE RBBB NO PREVIOUS TRACING DOCTOR: Eleuterio Francois Interpretating Date/Time 08/19/2018 23:51:34
[2018-08-20 00:56] LABS: Cholesterol 119 mg/dL (120-200); Triglycerides 88 mg/dL (42-150)
[2018-08-20 00:59] LABS: Chol/HDL Ratio 4.28 Ratio; HDL Cholesterol 27.8 mg/dL (40.0-60.0); LDL Cholesterol,Calculated 74 mg/dL (0-99)
[2018-08-20] MEDS: MethylPREDNISolone Sod Succinate Inj 125 MG/2 ML Vial IV.PUSH SCH ×2 (02:01→09:43)
[2018-08-20] MEDS: Sod Chloride 0.9% Inj 1,000 ML IV.SIG SCH ×2 (06:13→15:30)
[2018-08-20 07:26] LABS: Baso # (Auto) 0.1 th/mm3 (0.0-0.2); Baso % (Auto) 0.8 % (0.0-2.0); Eos # (Auto) 0.4 th/mm3 (0.0-0.4); Eos % (Auto) 4.9 % (0.0-4.0); Lymph # (Auto) 0.9 th/mm3 (1.0-4.8); Lymph % (Auto) 12.3 % (9.0-44.0); Mean Corpuscular HGB Conc 34.6 % (32.0-36.0); Mean Corpuscular Hemoglobin 31.5 pg (27.0-34.0); Mean Corpuscular Volume 91.1 fL (80.0-100.0); Mean Platelet Volume 7.7 fL (7.0-11.0); Mono # (Auto) 0.4 th/mm3 (0.0-0.9); Neut # (Auto) 5.7 th/mm3 (1.8-7.7); Platelet Count 131 th/mm3 (150-450); Red Blood Count 5.06 mil/mm3 (4.50-5.90); Red Cell Distribution Width 14.4 % (11.6-17.2); White Blood Count 7.4 th/mm3 (4.0-11.0)
[2018-08-20 07:57] LABS: Albumin 3.1 g/dL (3.4-5.0); Anion Gap 9 meq/L (5-15); Aspartate Aminotransferase 13 U/L (15-37); Blood Urea Nitrogen 15 mg/dL (7-18); Carbon Dioxide 23.1 meq/L (21.0-32.0); Chloride 108 meq/L (98-107); Glomerular Filtration Rate 53 mL/min (>89); Glucose,Random 84 mg/dL (74-106); Potassium 4.1 meq/L (3.5-5.1); Sodium 140 meq/L (136-145)
[2018-08-20 08:01] LABS: Alanine Aminotransferase 17 U/L (12-78); Alkaline Phosphatase 130 U/L (45-117); Total Protein 6.7 g/dL (6.4-8.2)
[2018-08-20] MEDS ORDERED: Gadobutrol PF 10 MMOL/10 ML Vial (for RAD) IV.SIG ONE (08:06)
--- NOTE | 2018-08-20 08:58 | MR ---
EXAM DATE: 08/20/2018 8:37 AM EDT AGE/SEX: 73 years / Male INDICATIONS: Dizziness. CLINICAL DATA: This is the patient's initial encounter. Patient reports that signs and symptoms have been present for 2 days and indicates a pain score of 0/10. MEDICAL/SURGICAL HISTORY: Hypertension. Tonsillectomy. COMPARISON: [facility] [place], CT HEAD W/O CONTRAST, 08/19/2018. . TECHNIQUE: Multiplanar, multisequence examination of the brain was performed without and with 10CC ml Gadavist (gadobutrol) contrast as a single exam dose. FINDINGS: Cerebrum: There is mild generalized atrophy with ventricular size within normal limits given the degr ee of atrophy. No midline shift, mass lesion, hemorrhage or acute infarction. No extraaxial fluid c ollections are seen. The pituitary gland and suprasellar cistern are normal in configuration. White Matter: There is mild periventricular and subcortical white matter signal change. Posterior Fossa: The cerebellum and brainstem demonstrate no acute abnormality. The 4th ventricle is midline. The cerebellopontine angle is within normal limits. The cerebellar tonsils are normal in p osition. Diffusion Imaging: No areas of restricted diffusion are seen. Extracranial: The visualized sinuses are clear. Post contrast no areas of abnormal enhancement are identified. CONCLUSION: 1. No acute intracranial abnormality is identified. 2. Chronic changes include generalized atrophy and mild periventricular white matter change characte ristic of chronic microvascular ischemia. Electronically signed by: Sam Weldon MD 08/20/2018 8:57 AM EDT
--- NOTE | 2018-08-20 09:01 | MR ---
EXAM DATE: 08/20/2018 8:37 AM EDT AGE/SEX: 73 years / Male INDICATIONS: Dizziness. CLINICAL DATA: This is the patient's initial encounter. Patient reports that signs and symptoms have been present for 2 days and indicates a pain score of 0/10. MEDICAL/SURGICAL HISTORY: Hypertension. Tonsillectomy. COMPARISON: [facility] [place], MR HEAD W & W/O CONTRAST, 08/20/2018. . TECHNIQUE: 3D [id number] MRA was performed. Source images, multiplanar STS MIP, and 3D volum e MIP reconstructions were reviewed. FINDINGS: There is excellent visualization of the major intracranial arteries out to the second-order branch ve ssels. There is no evidence for aneurysm, vessel truncation or stenosis, and no evidence for vascula r malformation. There are patent posterior communicating arteries. CONCLUSION: No acute intracranial vascular abnormality is identified. Electronically signed by: Sam Weldon MD 08/20/2018 8:59 AM EDT
--- NOTE | 2018-08-20 09:06 | MR ---
EXAM DATE: 08/20/2018 8:38 AM EDT AGE/SEX: 73 years / Male INDICATIONS: Dizziness. CLINICAL DATA: This is the patient's initial encounter. Patient reports that signs and symptoms have been present for 2 days and indicates a pain score of 0/10. MEDICAL/SURGICAL HISTORY: Hypertension. Tonsillectomy. COMPARISON: No prior exams available for comparison. TECHNIQUE: 10cc ml Gadavist (gadobutrol) contrast infused MRA (single exam dose) of the extracrania l circulation was performed using a neurovascular coil. Postprocessing was performed, including rota ting sub-volume maximum intensity projections of each carotid artery, rotating full-volume maximum in tensity projections of both carotid arteries, sagittal and coronal sliding thin-slab reformations of each carotid artery, and left oblique sliding thin-slab reformation through the aortic arch to includ e the origin of the arch branch vessels. FINDINGS: Aortic Arch : Arch demonstrates no significant abnormality. Origin of the great vessels is within no rmal limits. Right Carotid : The common carotid artery demonstrates no significant stenosis. There is minimal lum inal irregularity and narrowing in the carotid bulb without significant stenosis. The distal internal carotid artery and external carotid artery are within normal limits. Left Carotid : The common carotid artery is within normal limits. There is eccentric narrowing in th e carotid bulb and proximal internal carotid artery into focal locations. The more distal causes more luminal narrowing with approximately 40% luminal narrowing as measured using NASCET criteria. Vertebrals : The vertebral arteries have a symmetric diameter. No stenotic lesions are seen. CONCLUSION: 1. Eccentric narrowing likely related to atherosclerotic plaque in the left carotid bulb and proxima l internal carotid artery with estimated 40% stenosis. 2. Minimal atherosclerotic disease in the right carotid bulb. There is no significant stenosis on th e right. Percent stenosis is calculated using the diameter of the stenotic region over the diameter of the nor mal distal internal carotid artery Electronically signed by: Sam Weldon MD 08/20/2018 9:05 SUSAN TOVAR
[2018-08-20] MEDS: Sodium Chloride 0.9% 2 ML Flush BID IV.FLUSH SCH ×2 (09:29→21:18)
[2018-08-20] MEDS: Aspirin 325 MG Tablet PO SCH (09:41)
[2018-08-20] MEDS: Lisinopril 5 MG Tablet PO SCH (09:41)
[2018-08-20] MEDS: Enoxaparin Inj 30 MG/0.3 ML Syringe SQ SCH (09:42)
[2018-08-20] MEDS: Senna/Docusate Sodium 8.6/50 MG Tablet PO SCH ×2 (09:42→21:17)
[2018-08-20] MEDS: Metoprolol Tartrate 25 MG Tablet PO SCH ×2 (09:42→21:17)
--- NOTE | 2018-08-20 09:55 | P.PN ---
Subjective Interval history: Follow-up for COPD exacerbation, right lower lobe lung mass concerning for bronchogenic carcinoma. Patient is resting in bed. On nasal cannula. No acute concerns. Physical Exam Vital signs: Vital Signs 08/19/18 10:47 08/19/18 11:40 08/19/18 12:04 Temperature 97.5 F L Pulse Rate 91 H 88 Respiratory Rate 14 Blood Pressure 148/76 H Pulse Oximetry 94 L 93 L 08/19/18 14:10 08/19/18 20:00 08/19/18 20:46 Temperature 98.1 F Pulse Rate 94 H 81 82 Respiratory Rate 15 16 20 Blood Pressure 133/64 115/60 Pulse Oximetry 96 94 L 93 L 08/20/18 00:00 08/20/18 04:00 08/20/18 08:00 Temperature 97.8 F 98.4 F 98.3 F Pulse Rate 71 76 75 Respiratory Rate 16 16 18 Blood Pressure 111/65 131/71 131/70 Pulse Oximetry 92 L 90 L 92 L 08/20/18 08:44 Temperature Pulse Rate 76 Respiratory Rate 16 Blood Pressure Pulse Oximetry 99 Intake & Output 08/19/18 08/20/18 08/20/18 18:59 06:59 18:59 Intake Total 1480 / 1480 750 / 750 Output Total 575 / 575 Balance 1480 / 1480 175 / 175 Weight 79.379 kg 80.8 kg Intake: IV 1000 / 1000 750 / 750 Azithromycin Inj 500 MG In NS 250 / 250 Inj 250 ML @ 250 mls/hr IV.SIG Q24H TIMOTHY Rx#:[id number] NS Inj 500 ML @ 999 mls/hr IV. 1000 / 1000 500 / 500 SIG BOLUS ONE Rx#:[id number] Oral 480 / 480 Output: Urine 575 / 575 Other: # Voids 2 Date of Last Bowel Movement 08/19/18 Narrative: GENERAL: Alert, NAD. SKIN: Warm and dry. HEAD: Normocephalic. EYES: No scleral icterus. No injection or drainage. NECK: Supple, trachea midline. No JVD or lymphadenopathy. CARDIOVASCULAR: Regular rate and rhythm without murmurs, gallops, or rubs. RESPIRATORY: Moderate air entry, breath sounds somewhat coarse anteriorly, diminished diffusely in the posterior lung peck. GASTROINTESTINAL: Abdomen soft, non-tender, nondistended. MUSCULOSKELETAL: No cyanosis, or edema. BACK: Nontender without obvious deformity. No CVA tenderness. Results - Labs CBC & Chem 7: 08/20/18 07:00 08/20/18 07:00 Laboratory Results - last 24 hr 08/19/18 08/19/18 08/19/18 11:15 11:15 11:15 WBC 8.1 RBC 5.41 Hgb 17.2 H Hct 49.6 MCV 91.7 MCH 31.7 MCHC 34.6 RDW 14.8 Plt Count 146 L MPV 7.8 Neut % (Auto) 77.5 H Lymph % (Auto) 11.6 [place] % (Auto) 5.7 Eos % (Auto) 4.5 H Baso % (Auto) 0.7 Neut # (Auto) 6.3 Lymph # (Auto) 0.9 L [place] # (Auto) 0.5 Eos # (Auto) 0.4 Baso # (Auto) 0.1 WBC Differential . Differential Comment Auto diff final PT 11.2 INR 1.1 APTT 27.5 Puncture Site Patient Temperature O2 Saturation ABG pH ABG pCO2 ABG pO2 ABG HCO3 ABG O2 Content ABG Base Excess ABG Methemoglobin Ace Test Hemoglobin Carboxyhemoglobin Inspired O2 Critical Value Sodium 141 Potassium 3.9 Chloride 108 H Carbon Dioxide 24.2 Anion Gap 9 BUN 20 H Creatinine 1.68 H Estimated GFR 40 L Random Glucose 105 Calcium 8.5 Magnesium 1.6 Total Bilirubin 0.8 AST 15 ALT 22 Alkaline Phosphatase 138 H Total Creatine Kinase 82 Troponin I Less than 0.02 L B-Natriuretic Peptide Total Protein 7.7 Albumin 3.6 Triglycerides Cholesterol LDL Cholesterol, Calc HDL Cholesterol Cholesterol/HDL Ratio TSH Urine Color Urine Clarity Urine pH Ur Specific [place] Urine Protein Urine Glucose (UA) Urine Ketones Urine Occult Blood Urine Nitrate Urine Bilirubin Urine Urobilinogen Ur Leukocyte Esterase Urine RBC Urine WBC Hyaline Casts Urine Mucus Micro UA Comment Ur Microscopic Review Urine Culture Comments 08/19/18 08/19/18 08/19/18 11:15 11:15 13:00 WBC RBC Hgb Hct MCV MCH MCHC RDW Plt Count MPV Neut % (Auto) Lymph % (Auto) [place] % (Auto) Eos % (Auto) Baso % (Auto) Neut # (Auto) Lymph # (Auto) [place] # (Auto) Eos # (Auto) Baso # (Auto) WBC Differential Differential Comment PT INR APTT Puncture Site Patient Temperature O2 Saturation ABG pH ABG pCO2 ABG pO2 ABG HCO3 ABG O2 Content ABG Base Excess ABG Methemoglobin Ace Test Hemoglobin Carboxyhemoglobin Inspired O2 Critical Value Sodium Potassium Chloride Carbon Dioxide Anion Gap BUN Creatinine Estimated GFR Random Glucose Calcium Magnesium Total Bilirubin AST ALT Alkaline Phosphatase Total Creatine Kinase Troponin I B-Natriuretic Peptide 39 Total Protein Albumin Triglycerides Cholesterol LDL Cholesterol, Calc HDL Cholesterol Cholesterol/HDL Ratio TSH 3.850 H Urine Color Yellow Urine Clarity Clear Urine pH 5.0 Ur Specific [place] 1.017 Urine Protein Negative Urine Glucose (UA) Negative Urine Ketones Negative Urine Occult Blood Negative Urine Nitrate Negative Urine Bilirubin Negative Urine Urobilinogen 2.0 H Ur Leukocyte Esterase Negative Urine RBC 1 Urine WBC 1 Hyaline Casts 3 Urine Mucus Few H Micro UA Comment Culture not ind Ur Microscopic Review Not Reportable Urine Culture Comments Culture not ind 08/19/18 08/19/18 08/20/18 14:48 18:35 00:00 WBC RBC Hgb Hct MCV MCH MCHC RDW Plt Count MPV Neut % (Auto) Lymph % (Auto) [place] % (Auto) Eos % (Auto) Baso % (Auto) Neut # (Auto) Lymph # (Auto) [place] # (Auto) Eos # (Auto) Baso # (Auto) WBC Differential Differential Comment PT INR APTT Puncture Site Right radial Patient Temperature 98.6 O2 Saturation 88 L* ABG pH 7.38 ABG pCO2 37 L ABG pO2 67 ABG HCO3 22 ABG O2 Content 21.7 H ABG Base Excess -2.7 L ABG Methemoglobin 0.6 Ace Test Present Hemoglobin 17.4 H Carboxyhemoglobin 4.3 H Inspired O2 21 Critical Value Yes Sodium Potassium Chloride Carbon Dioxide Anion Gap BUN Creatinine Estimated GFR Random Glucose Calcium Magnesium Total Bilirubin AST ALT Alkaline Phosphatase Total Creatine Kinase Troponin I Less than 0.02 L Less than 0.02 L B-Natriuretic Peptide Total Protein Albumin Triglycerides 88 Cholesterol 119 L LDL Cholesterol, Calc 74 HDL Cholesterol 27.8 L Cholesterol/HDL Ratio 4.28 TSH Urine Color Urine Clarity Urine pH Ur Specific [place] Urine Protein Urine Glucose (UA) Urine Ketones Urine Occult Blood Urine Nitrate Urine Bilirubin Urine Urobilinogen Ur Leukocyte Esterase Urine RBC Urine WBC Hyaline Casts Urine Mucus Micro UA Comment Ur Microscopic Review Urine Culture Comments 08/20/18 08/20/18 07:00 07:00 WBC 7.4 RBC 5.06 Hgb 16.0 Hct 46.0 MCV 91.1 MCH 31.5 MCHC 34.6 RDW 14.4 Plt Count 131 L MPV 7.7 Neut % (Auto) 77.0 H Lymph % (Auto) 12.3 [place] % (Auto) 5.0 Eos % (Auto) 4.9 H Baso % (Auto) 0.8 Neut # (Auto) 5.7 Lymph # (Auto) 0.9 L [place] # (Auto) 0.4 Eos # (Auto) 0.4 Baso # (Auto) 0.1 WBC Differential . Differential Comment Auto diff final PT INR APTT Puncture Site Patient Temperature O2 Saturation ABG pH ABG pCO2 ABG pO2 ABG HCO3 ABG O2 Content ABG Base Excess ABG Methemoglobin Ace Test Hemoglobin Carboxyhemoglobin Inspired O2 Critical Value Sodium 140 Potassium 4.1 Chloride 108 H Carbon Dioxide 23.1 Anion Gap 9 BUN 15 Creatinine 1.33 H Estimated GFR 53 L Random Glucose 84 Calcium 8.0 L Magnesium Total Bilirubin 1.0 AST 13 L ALT 17 Alkaline Phosphatase 130 H Total Creatine Kinase Troponin I B-Natriuretic Peptide Total Protein 6.7 D Albumin 3.1 L Triglycerides Cholesterol LDL Cholesterol, Calc HDL Cholesterol Cholesterol/HDL Ratio TSH Urine Color Urine Clarity Urine pH Ur Specific [place] Urine Protein Urine Glucose (UA) Urine Ketones Urine Occult Blood Urine Nitrate Urine Bilirubin Urine Urobilinogen Ur Leukocyte Esterase Urine RBC Urine WBC Hyaline Casts Urine Mucus Micro UA Comment Ur Microscopic Review Urine Culture Comments - Imaging Impressions Chest X-Ray 08/19/18 11:17 CONCLUSION: Interstitial prominence in the lower lung zones of uncertain chronicity. Otherwise, no acute abnormality is identified. Head CT 08/19/18 11:17 CONCLUSION: No acute intracranial abnormality is identified. . Chest CT 08/19/18 12:07 CONCLUSION: 1. Spiculated noncalcified mass within the right lower lobe measuring 2.8 x 3.1 x 3.1 cm consistent with bronchogenic carcinoma until proven otherwise. This lesion is amenable to percutaneous biopsy if requested. 2. Scattered emphysematous changes. 3. Posterior bibasilar atelectatic changes. 4. Biapical pleural thickening. 5. Coronary artery ossification. 6. 9.6 cm cystic lesion in the expected region of the upper pole of the right kidney. 7. Small hiatal hernia. 8. Degenerative changes throughout the thoracic spine. Head MRI 08/20/18 00:00 CONCLUSION: 1. No acute intracranial abnormality is identified. 2. Chronic changes include generalized atrophy and mild periventricular white matter change characteristic of chronic microvascular ischemia. Head MRA 08/20/18 00:00 CONCLUSION: No acute intracranial vascular abnormality is identified. Neck MRA 08/20/18 00:00 CONCLUSION: 1. Eccentric narrowing likely related to atherosclerotic plaque in the left carotid bulb and proximal internal carotid artery with estimated 40% stenosis. 2. Minimal atherosclerotic disease in the right carotid bulb. There is no significant stenosis on the right. Percent stenosis is calculated using the diameter of the stenotic region over the diameter of the normal distal internal carotid artery - Procedures Echo 08/20/2018 The left ventricular systolic function is low normal with an estimated ejection fraction in the range of 50- 55%. Normal left ventricular size. Wall thickness is normal. Trace mitral valve regurgitation. There is mild tricuspid valve regurgitation. The estimated pulmonary arterial pressure is 29.9 mmHg. Assessment and Plan - Plan Mr. Newton is a pleasant 73-year-old male who was admitted to the hospital due to dizziness that has been getting worse. Patient has a history of CAD and he is being evaluated for CABG next month. ED workup indicated right lower lobe lung mass. Pulmonary was consulted. Acute COPD exacerbation Right lung mass -Right lower lobe spiculated noncalcified mass 2.8 x 3.1 x 3.1 cm - concerning for bronchogenic carcinoma -CT guided biopsy - hopefully tomorrow. -DuoNeb, Supplemental O2, Symbicort and Azithromycin. Continue Solu-Medrol. Coronary artery disease -[facility] Cardiology evaluated patient here. -Echo shows EF 50-55%. Continue Aspirin. We can likely change ASA to 81mg Qday. Hypertension - Continue lisinopril 5 mg daily, metoprolol tartrate 12.5 mg twice daily. Full code Lovenox 30 mg daily.
--- NOTE | 2018-08-20 10:13 | US ---
EXAM DATE: 08/20/2018 10:09 AM EDT AGE/SEX: 73 years / Male INDICATIONS: Syncope. CLINICAL DATA: This is the patient's initial encounter. Patient reports that signs and symptoms have been present for 1 day and indicates a pain score of 2/10. MEDICAL/SURGICAL HISTORY: Hypertension. Colitis. Heart attack. High cholesterol. Tonsillectomy . Cardiac catheterization. COMPARISON: No prior exams available for comparison. VELOCITY PARAMETERS: ICA/CCA Ratio: Right 0.97 , Left 1.2 ICA: Right 142 cm/sec, Left 179 cm/sec CCA: Right 146 cm/sec, Left 148 cm/sec ECA: Right 217 cm/sec, Left 206 cm/sec Vertebral: Right 59 cm/sec antegrade, Left 65 cm/sec antegrade FINDINGS: Right Carotid: Moderate arteriosclerotic plaque is visualized.The waveforms are within normal limits . Left Carotid: Moderate arteriosclerotic plaque is visualized. The waveforms are within normal limits . Other: None. CONCLUSION: No evidence of flow-limiting carotid stenosis. Electronically signed by: Sam Garza MD 08/20/2018 10:12 AM EDT
--- NOTE | 2018-08-20 10:34 | P.PNCA ---
Subjective Interval history: pt without complaints Medications and Allergies Active Medications: Active Medications Acetaminophen (Tylenol) 650 mg PO Q4H PRN PRN Reason: Temp > 100.4 Al Hydroxide/Mg Hydroxide (Milk Of Magnesia Liq) 30 ml PO Q12H PRN PRN Reason: Mild Constipation Albuterol (Duoneb Neb (Prn)) 1 ampul NEB Q2HR NEB PRN PRN Reason: DYSPNEA Albuterol (Duoneb Neb (Steph)) 1 ampul NEB Q6HR WHILE AWAKE NEB [facility] Last Admin: 08/20/18 08:43 Dose: 1 ampul Aspirin (Aspirin) 325 mg PO DAILY [facility] Last Admin: 08/20/18 09:41 Dose: 325 mg Bisacodyl (Dulcolax Supp) 10 mg RECTAL DAILY PRN PRN Reason: SEVERE CONSITIPATION Budesonide/Formoterol Fumarate (Symbicort 160/4.5 Mcg Inh) 2 puff INH BID [facility] Last Admin: 08/19/18 21:35 Dose: 2 puff Enoxaparin Sodium (Lovenox Inj) 30 mg SQ DAILY [facility] Last Admin: 08/20/18 09:42 Dose: 30 mg Azithromycin 500 mg/ Sodium (Chloride) 250 mls @ 250 mls/hr IV.SIG Q24H [facility] Last Infusion: 08/19/18 21:50 Dose: Infused Sodium Chloride (Ns Inj) 1,000 mls @ 100 mls/hr IV.SIG .Q10H [facility] Last Admin: 08/20/18 06:13 Dose: 100 mls/hr Lactulose (Lactulose Liq) 30 ml PO DAILY PRN PRN Reason: SEVERE CONSITIPATION Lisinopril (Prinivil) 5 mg PO DAILY [facility] Last Admin: 08/20/18 09:41 Dose: 5 mg Methylprednisolone Sodium Succinate (Solumedrol Inj) 60 mg IV.PUSH Q8H [facility] Last Admin: 08/20/18 09:43 Dose: 60 mg Metoprolol Tartrate (Lopressor) 12.5 mg PO BID [facility] Last Admin: 08/20/18 09:42 Dose: 12.5 mg Miscellaneous (Pill Splitter) 1 each OTHER UNSCH PRN PRN Reason: PILL SPLITTING Nicotine (Habitrol 21 Mg Patch.24 Hr) 1 patch T-DERMAL DAILY [facility] Last Admin: 08/20/18 09:43 Dose: 1 patch Nitroglycerin (Nitrostat Sl) 0.4 mg SL Q5M PRN PRN Reason: CHEST PAIN Ondansetron HCl (Zofran Inj) 4 mg IV.PUSH Q6H PRN PRN Reason: NAUSEA OR VOMITING Patch Removal (Remove Old Patch) 1 each T-DERMAL DAILY [facility] Senna/Docusate Sodium (Brenda-Colace) 1 tab PO BID [facility] Last Admin: 08/20/18 09:42 Dose: 1 tab Sennosides (Senokot) 17.2 mg PO Q12H PRN PRN Reason: Moderate Constipation Sodium Chloride (Ns Flush) 2 ml IV.FLUSH PRN PRN PRN Reason: FLUSH AFTER USING IV ACCESS Sodium Chloride (Ns Flush) 2 ml IV.FLUSH BID [facility] Last Admin: 08/19/18 21:35 Dose: Not Given Sodium Chloride (Ns Flush) 2 ml IV.FLUSH PRN PRN PRN Reason: FLUSH AFTER USING IV ACCESS Allergies Allergy/AdvReac Type Severity Reaction Status Date / Time No Known Allergies Allergy Verified 08/19/18 10:47 Home Medications Medication Instructions Recorded Confirmed Type aspirin 325 mg PO DAILY 08/19/18 08/19/18 History bupropion HCl [Wellbutrin XL] mg PO QAM 08/19/18 History nitroglycerin [Nitrostat] 0.4 mg SUBLINGUAL Q5-15M PRN 08/19/18 08/19/18 History Physical Exam Vital signs: Vital Signs 08/19/18 10:47 08/19/18 11:40 08/19/18 12:04 Temperature 97.5 F L Pulse Rate 91 H 88 Respiratory Rate 14 Blood Pressure 148/76 H Pulse Oximetry 94 L 93 L 08/19/18 14:10 08/19/18 20:00 08/19/18 20:46 Temperature 98.1 F Pulse Rate 94 H 81 82 Respiratory Rate 15 16 20 Blood Pressure 133/64 115/60 Pulse Oximetry 96 94 L 93 L 08/20/18 00:00 08/20/18 04:00 08/20/18 08:00 Temperature 97.8 F 98.4 F 98.3 F Pulse Rate 71 76 75 Respiratory Rate 16 16 18 Blood Pressure 111/65 131/71 131/70 Pulse Oximetry 92 L 90 L 92 L 08/20/18 08:44 Temperature Pulse Rate 76 Respiratory Rate 16 Blood Pressure Pulse Oximetry 99 Intake & Output 08/19/18 08/20/18 08/20/18 18:59 06:59 18:59 Intake Total 1480 / 1480 750 / 750 Output Total 575 / 575 Balance 1480 / 1480 175 / 175 Weight 79.379 kg 80.8 kg Intake: IV 1000 / 1000 750 / 750 Azithromycin Inj 500 MG In NS 250 / 250 Inj 250 ML @ 250 mls/hr IV.SIG Q24H STEPH Rx#:[id number] NS Inj 500 ML @ 999 mls/hr IV. 1000 / 1000 500 / 500 SIG BOLUS ONE Rx#:[id number] Oral 480 / 480 Output: Urine 575 / 575 Other: # Voids 2 Date of Last Bowel Movement 08/19/18 - Routine Respiratory Exam Present: CTA bilaterally - Routine Cardiovascular Exam Present: RRR Comments: no murmurs or edema Results 08/20/18 07:00 08/20/18 07:00 Cardiac Enzymes 08/19/18 08/19/18 08/19/18 Range/Units 11:15 11:15 18:35 AST 15 (15-37) U/L Troponin I Less than 0.02 L Less than 0.02 L (0.02-0.05) ng/mL B-Natriuretic Peptide 39 (0-100) pg/mL 08/20/18 08/20/18 Range/Units 00:00 07:00 AST 13 L (15-37) U/L Troponin I Less than 0.02 L (0.02-0.05) ng/mL B-Natriuretic Peptide (0-100) pg/mL Coagulation 08/19/18 08/19/18 Range/Units 11:15 11:15 PT 11.2 (9.8-11.6) sec APTT 27.5 (24.3-30.1) sec B-Natriuretic Peptide 39 (0-100) pg/mL Lipids 08/20/18 Range/Units 00:00 Triglycerides 88 (42-150) mg/dL Cholesterol 119 L (120-200) mg/dL HDL Cholesterol 27.8 L (40.0-60.0) mg/dL Cholesterol/HDL Ratio 4.28 Ratio CBC 08/19/18 08/20/18 Range/Units 11:15 07:00 WBC 8.1 7.4 (4.0-11.0) th/mm3 RBC 5.41 5.06 (4.50-5.90) mil/mm3 Hgb 17.2 H 16.0 (13.0-17.0) gm/dL Hct 49.6 46.0 (39.0-51.0) % Plt Count 146 L 131 L (150-450) th/mm3 Neut # (Auto) 6.3 5.7 (1.8-7.7) th/mm3 Lymph # (Auto) 0.9 L 0.9 L (1.0-4.8) th/mm3 [place] # (Auto) 0.5 0.4 (0.0-0.9) th/mm3 Eos # (Auto) 0.4 0.4 (0.0-0.4) th/mm3 Baso # (Auto) 0.1 0.1 (0.0-0.2) th/mm3 Comprehensive Metabolic Panel 08/19/18 08/20/18 Range/Units 11:15 07:00 Sodium 141 140 (136-145) meq/L Potassium 3.9 4.1 (3.5-5.1) meq/L Chloride 108 H 108 H (98-107) meq/L Carbon Dioxide 24.2 23.1 (21.0-32.0) meq/L BUN 20 H 15 (7-18) mg/dL Creatinine 1.68 H 1.33 H (0.60-1.30) mg/dL Calcium 8.5 8.0 L (8.5-10.1) mg/dL AST 15 13 L (15-37) U/L ALT 22 17 (12-78) U/L Alkaline Phosphatase 138 H 130 H (45-117) U/L Total Protein 7.7 6.7 D (6.4-8.2) g/dL Albumin 3.6 3.1 L (3.4-5.0) g/dL Intake and Output 08/19/18 08/20/18 08/20/18 22:59 06:59 14:59 Intake Total 1230 / 1230 Output Total 575 / 575 Balance 1230 / 1230 -575 / -575 Intake: IV 750 / 750 Azithromycin Inj 500 MG In NS 250 / 250 Inj 250 ML @ 250 mls/hr IV.SIG Q24H STEPH Rx#:[id number] NS Inj 500 ML @ 999 mls/hr IV. 500 / 500 SIG BOLUS ONE Rx#:[id number] Oral 480 / 480 Output: Urine 575 / 575 Other: # Voids 2 Date of Last Bowel Movement 08/19/18 Weight 80.8 kg - Imaging and Cardiology Imaging: Impressions Chest X-Ray 08/19/18 11:17 CONCLUSION: Interstitial prominence in the lower lung zones of uncertain chronicity. Otherwise, no acute abnormality is identified. Head CT 08/19/18 11:17 CONCLUSION: No acute intracranial abnormality is identified. . Chest CT 08/19/18 12:07 CONCLUSION: 1. Spiculated noncalcified mass within the right lower lobe measuring 2.8 x 3.1 x 3.1 cm consistent with bronchogenic carcinoma until proven otherwise. This lesion is amenable to percutaneous biopsy if requested. 2. Scattered emphysematous changes. 3. Posterior bibasilar atelectatic changes. 4. Biapical pleural thickening. 5. Coronary artery ossification. 6. 9.6 cm cystic lesion in the expected region of the upper pole of the right kidney. 7. Small hiatal hernia. 8. Degenerative changes throughout the thoracic spine. Carotid Doppler Study 08/20/18 00:00 CONCLUSION: No evidence of flow-limiting carotid stenosis. Head MRI 08/20/18 00:00 CONCLUSION: 1. No acute intracranial abnormality is identified. 2. Chronic changes include generalized atrophy and mild periventricular white matter change characteristic of chronic microvascular ischemia. Head MRA 08/20/18 00:00 CONCLUSION: No acute intracranial vascular abnormality is identified. Neck MRA 08/20/18 00:00 CONCLUSION: 1. Eccentric narrowing likely related to atherosclerotic plaque in the left carotid bulb and proximal internal carotid artery with estimated 40% stenosis. 2. Minimal atherosclerotic disease in the right carotid bulb. There is no significant stenosis on the right. Percent stenosis is calculated using the diameter of the stenotic region over the diameter of the normal distal internal carotid artery Assessment and Plan - Plan CAD- pt is asymptomatic awaiting CABG, scheduled OP at [facility] -no change in symptoms to move up, pt wants to wait -ECHO in progress Lung mass- ok for CT biopsy from CV perspective Available PRN
--- NOTE | 2018-08-20 10:38 | P.PNPL ---
Subjective Interval history: Patient is lying in bed in NAD. Afebrile. Physical Exam Vital signs: Vital Signs 08/19/18 10:47 08/19/18 11:40 08/19/18 12:04 Temperature 97.5 F L Pulse Rate 91 H 88 Respiratory Rate 14 Blood Pressure 148/76 H Pulse Oximetry 94 L 93 L 08/19/18 14:10 08/19/18 20:00 08/19/18 20:46 Temperature 98.1 F Pulse Rate 94 H 81 82 Respiratory Rate 15 16 20 Blood Pressure 133/64 115/60 Pulse Oximetry 96 94 L 93 L 08/20/18 00:00 08/20/18 04:00 08/20/18 08:00 Temperature 97.8 F 98.4 F 98.3 F Pulse Rate 71 76 75 Respiratory Rate 16 16 18 Blood Pressure 111/65 131/71 131/70 Pulse Oximetry 92 L 90 L 92 L 08/20/18 08:44 Temperature Pulse Rate 76 Respiratory Rate 16 Blood Pressure Pulse Oximetry 99 Intake & Output 08/19/18 08/20/18 08/20/18 18:59 06:59 18:59 Intake Total 1480 / 1480 750 / 750 Output Total 575 / 575 Balance 1480 / 1480 175 / 175 Weight 79.379 kg 80.8 kg Intake: IV 1000 / 1000 750 / 750 Azithromycin Inj 500 MG In NS 250 / 250 Inj 250 ML @ 250 mls/hr IV.SIG Q24H TIMOTHY Rx#:[id number] NS Inj 500 ML @ 999 mls/hr IV. 1000 / 1000 500 / 500 SIG BOLUS ONE Rx#:[id number] Oral 480 / 480 Output: Urine 575 / 575 Other: # Voids 2 Date of Last Bowel Movement 08/19/18 - Constitutional no acute distress - Routine HEENT Exam Head: Present: normocephalic, atraumatic Eye: Present: EOMI, PERRL, normal accommodation, conjunctivae pink ENT: Present: mucous membranes moist - Routine Neck Exam Present: supple, full ROM, trachea midline - Routine Respiratory Exam Present: CTA bilaterally - Routine Cardiovascular Exam Present: RRR, S1, S2 - Routine Abdominal Exam Present: soft, normoactive bowel sounds - Routine Extremities Exam Present: full ROM, pulses intact - Routine Skin Exam Present: intact, dry - Routine Neurological Exam Present: alert, oriented X3, CN II-XII intact Assessment and Plan - Plan 1. Resp Insuff 2. COPD exacerbation. 3. Right lower lobe spiculated noncalcified mass 2.8 x 3.1 x 3.1 cm. rule out bronchogenic carcinoma. 4. Bibasilar atelectasis. 5. Active tobacco use. 6. Coronary artery disease. 7. Hypertension. 8. Hyperlipidemia. Plan Continue with oxygen and maintain sats >92%. Bronchodilators(DuoNeb,Symbicort) Decrease Solu-Medrol 40mg Q12 BiPAP p.r.n. for respiratory distress. Continue abx-azithromycin, monitor for signs of infection. Check sputum culture Check PFT to asses severity of his obstructive lung disease Patient is agreeable for CT guided lung biopsy. Will need staging workup once pathology confirms bronchogenic carcinoma. Patient is counseled regarding smoking cessation. Continue treatment plan
--- NOTE | 2018-08-20 11:15 | ECHRPT ---
Indication: Syncope and collapse CONCLUSIONS The left ventricular systolic function is low normal with an estimated ejection fraction in the rang e of 50- 55%. Normal left ventricular size. Wall thickness is normal. Trace mitral valve regurgitation. There is mild tricuspid valve regurgitation. The estimated pulmonary arterial pressure is 29.9 mmHg. BP: / HR: Rhythm: Sinus MEASUREMENTS (Male / Female) Normal Values Technical Quality:Fair 2D ECHO LV Diastolic Diameter PLAX 4.0 cm 4.2 - 5.9 / 3.9 - 5.3 cm LV Systolic Diameter PLAX 3.1 cm IVS Diastolic Thickness 0.9 cm 0.6 - 1.0 / 0.6 - 0.9 cm LVPW Diastolic Thickness 0.9 cm 0.6 - 1.0 / 0.6 - 0.9 cm LV Relative Wall Thickness 0.4 LVOT Diameter 2.3 cm LA Systolic Diameter LX 4.2 cm 3.0 - 4.0 / 2.7 - 3.8 cm M-MODE Aortic Root Diameter MM 3.6 cm LA Systolic Diameter MM 3.9 cm LA Ao Ratio MM 1.1 AV Cusp Separation MM 2.1 cm DOPPLER AV Peak Velocity 110.0 cm/s AV Peak Gradient 4.8 mmHg LVOT Peak Velocity 110.0 cm/s LVOT Peak Gradient 4.8 mmHg AV Area Cont Eq pk 4.2 cm MR Peak Velocity 289.0 cm/s MR Peak Gradient 33.4 mmHg Mitral E Point Velocity 116.0 cm/s Mitral A Point Velocity 96.7 cm/s Mitral E to A Ratio 1.2 LV E' Lateral Velocity 7.9 cm/s Mitral E to LV E' Lateral Ratio 14.7 LV E' Septal Velocity 8.3 cm/s Mitral E to LV E' Septal Ratio 14.0 TR Peak Velocity 223.0 cm/s TR Peak Gradient 19.9 mmHg Right Atrial Pressure 10.0 mmHg Pulmonary Artery Systolic Pressu 29.9 mmHg Right Ventricular Systolic Press 29.9 mmHg PV Peak Velocity 105.0 cm/s PV Peak Gradient 4.4 mmHg FINDINGS LEFT VENTRICLE The left ventricular systolic function is low normal with an estimated ejection fraction in the rang e of 50- 55%. Normal left ventricular size. Wall thickness is normal. RIGHT VENTRICLE Normal right ventricular size and systolic function. LEFT ATRIUM The left atrial size is normal. RIGHT ATRIUM The right atrial size is normal. ATRIAL SEPTUM Normal atrial septal thickness without atrial level shunting by limited color doppler interrogation. AORTA The aortic root and proximal ascending aorta are normal in size on limited imaging. MITRAL VALVE Trace mitral valve regurgitation. AORTIC VALVE Trileaflet aortic valve. No aortic valve stenosis or regurgitation. TRICUSPID VALVE There is mild tricuspid valve regurgitation. The estimated pulmonary arterial pressure is 29.9 mmHg. PULMONARY VALVE No pulmonary valve regurgitation or stenosis. VESSELS The inferior vena cava is normal in size. PERICARDIUM No pericardial effusion. Caitlyn Ryan MD, FACC (Electronically Signed) Final Date:20 August 2018 11:14
[2018-08-20] MEDS: Azithromycin Inj 500 MG in Sodium Chlor 0.9% Inj 250 ML IV.SIG SCH (16:30)
--- NOTE | 2018-08-20 18:54 | MB ---
cc: Cristi Lewis MD DATE: 08/20/2018 HISTORY OF PRESENT ILLNESS: A 73-year-old right-handed man with hypertension, hypercholesterolemia, [place], cardiac stent, several over 20 years old, says he needs a bypass operation, but will not be getting it until the end of the year at the [facility] due to scheduling and his lack of money. He does take 325 mg aspirin a day. He has had a history of some slight dizziness for years on and off and then yesterday, he came in because he was very dizzy with vertigo, nausea and vomiting, lasted about 3 hours. He has never had it like that before. No asymmetrical weakness or numbness. No chest pain. REVIEW OF SYSTEMS: He denies any diabetes, atrial fibrillation, Coumadin, or renal, hepatic or pulmonary disease, though evidently a spot was found in his lung here. No history of thyroid disease, lupus, ulcer, prior cancer, seizure or stroke. SOCIAL HISTORY: He is a smoker. I have asked him to quit. He quit drinking 12 years ago. Lives with his friend. FAMILY HISTORY: Positive for cancer in his mother. Negative for seizure or stroke. MEDICATIONS AT HOME: He was on Nitrostat, aspirin 325 mg, possibly Wellbutrin. PHYSICAL EXAMINATION: VITAL SIGNS: Afebrile, 77, 16, 132/71 to 148/76. NECK: There are no carotid or vertebral bruits. HEART: Regular rhythm. I did not detect a murmur. NEUROLOGIC: Pupils are equal. Vision peck are full. Extraocular movements are intact without nystagmus. Face is symmetric with normal sensation. Tongue was midline. No drift. He had normal strength in upper and lower extremities bilaterally. DTRs are 2+ symmetric in the upper extremities, 3+ symmetric at the knees. Toes downgoing bilaterally. There is no ankle clonus. Pinprick is intact throughout. He is not ataxic on [id number]. He had normal gait. Poor tandem. Negative Romberg. Hallpike maneuver was markedly positive on the right and I did the Garth maneuver x3 starting on the right. LABORATORY DATA: CBC is normal. UA negative. Basic metabolic profile: Creatinine 1.68, down to 1.33. His CPK and troponin were negative. LDL cholesterol 74. TSH 3.8. ABG 7.38, 37, 67. Coags normal. MRI of the brain is negative. MRA [place] is negative. No mastoid fluid. IMPRESSION: Right benign positional vertigo. I did do the Garth x3 and that should help him quite a bit. He did not have any vertebrobasilar disease on his MRAs. Do not think this is related to his heart. I note his echocardiogram was normal. He had a chest CT, however, that showed a right lower lobe mass, consistent with cancer, something in the upper pole of the right kidney, a cyst. Brain MRI was done with and without and no areas of enhancement were noted, so no evidence of mets. He is a bit hyperreflexive in bilateral lower extremities. We will check an MRI of his cervical spine to make sure there is no cervical spinal stenosis and a B12 level, but if those are negative, then he could be discharged. He did not actually pass out, he tells me. MD CAM Mohamud/shashank , 05:24 PM , 05:33 PM
--- NOTE | 2018-08-20 20:03 | MR ---
EXAM DATE: 08/20/2018 7:33 PM EDT AGE/SEX: 73 years / Male INDICATIONS: . Dizziness. CLINICAL DATA: This is the patient's initial encounter. Patient reports that signs and symptoms have been present for 2 days and indicates a pain score of 0/10. MEDICAL/SURGICAL HISTORY: Hypertension. Tonsillectomy. COMPARISON: No prior exams available for comparison. TECHNIQUE: Multiplanar, multisequence MRI examination of the cervical spine was performed without co ntrast. FINDINGS: At C2-3 there is mild degenerative change without stenosis. At C3-4 there is a disc bulge effacing the anterior thecal sac without significant stenosis centrally . Minimal foraminal encroachment. At C4-5 there is a mild disc osteophyte complex without significant canal stenosis. Minimal foraminal encroachment. At C5-6-7-T1 there is no significant canal or foraminal stenosis. Slight exaggeration of normal cervical lordosis. No cord signal abnormalities. Trace fluid or minimal cystic change anterior to C2 of unknown etiology. CONCLUSION: 1. Mild degenerative disc disease and slight exaggeration of normal cervical lordosis but without ev idence for significant canal stenosis or cord impingement. No fracture or spondylolisthesis. Electronically signed by: Kelechi Mack MD 08/20/2018 8:02 PM EDT
[2018-08-20] MEDS: Budesonide-Formoterol 160/4.5 MCG 6 GM Inhaler INH SCH ×2 (20:30→21:18)
[2018-08-20] MEDS: MethylPREDNISolone Sod Succinate Inj 40 MG/ML Vial IV.PUSH SCH (21:16)
[2018-08-21] MEDS ORDERED: Chlorhexidine Gluconate 2% 1 Pack (2 Cloths) TOPICAL ONE (00:48)
[2018-08-21] MEDS ORDERED: Sodium Chlor 0.9% Inj 500 ML IV.SIG SCH (01:00)
[2018-08-21] MEDS: Sod Chloride 0.9% Inj 1,000 ML IV.SIG SCH ×3 (03:17→22:35)
--- NOTE | 2018-08-21 07:38 | P.PNNEU ---
Subjective Subjective Comments: no longer dizzy Active Medications: Active Medications Acetaminophen (Tylenol) 650 mg PO Q4H PRN PRN Reason: Temp > 100.4 Al Hydroxide/Mg Hydroxide (Milk Of Magnesia Liq) 30 ml PO Q12H PRN PRN Reason: Mild Constipation Albuterol (Duoneb Neb (Prn)) 1 ampul NEB Q2HR NEB PRN PRN Reason: DYSPNEA Albuterol (Duoneb Neb (Steph)) 1 ampul NEB Q6HR WHILE AWAKE NEB [facility] Last Admin: 08/20/18 20:49 Dose: 1 ampul Aspirin (Aspirin) 325 mg PO DAILY [facility] Last Admin: 08/20/18 09:41 Dose: 325 mg Bisacodyl (Dulcolax Supp) 10 mg RECTAL DAILY PRN PRN Reason: SEVERE CONSITIPATION Budesonide/Formoterol Fumarate (Symbicort 160/4.5 Mcg Inh) 2 puff INH BID [facility] Last Admin: 08/20/18 21:18 Dose: 2 puff Enoxaparin Sodium (Lovenox Inj) 30 mg SQ DAILY [facility] Last Admin: 08/20/18 09:42 Dose: 30 mg Azithromycin 500 mg/ Sodium (Chloride) 250 mls @ 250 mls/hr IV.SIG Q24H [facility] Last Infusion: 08/20/18 17:30 Dose: Infused Sodium Chloride (Ns Inj) 1,000 mls @ 100 mls/hr IV.SIG .Q10H [facility] Last Admin: 08/21/18 03:17 Dose: Not Given Lactated Ringer's (Lr 1000 Ml Inj) 1,000 mls @ 30 mls/hr IV.SIG .Q24H [facility] Stop: 08/22/18 00:59 Last Admin: 08/21/18 03:12 Dose: 30 mls/hr Sodium Chloride (Ns Inj) 500 mls @ 30 mls/hr IV.SIG .Q10H [facility] Last Admin: 08/21/18 03:16 Dose: Not Given Lactulose (Lactulose Liq) 30 ml PO DAILY PRN PRN Reason: SEVERE CONSITIPATION Lisinopril (Prinivil) 5 mg PO DAILY [facility] Last Admin: 08/20/18 09:41 Dose: 5 mg Methylprednisolone Sodium Succinate (Solumedrol Inj) 40 mg IV.PUSH Q12H [facility] Last Admin: 08/20/18 21:16 Dose: 40 mg Metoprolol Tartrate (Lopressor) 12.5 mg PO BID [facility] Last Admin: 08/20/18 21:17 Dose: 12.5 mg Miscellaneous (Pill Splitter) 1 each OTHER UNSCH PRN PRN Reason: PILL SPLITTING Nicotine (Habitrol 21 Mg Patch.24 Hr) 1 patch T-DERMAL DAILY [facility] Last Admin: 08/20/18 09:43 Dose: 1 patch Nitroglycerin (Nitrostat Sl) 0.4 mg SL Q5M PRN PRN Reason: CHEST PAIN Ondansetron HCl (Zofran Inj) 4 mg IV.PUSH Q6H PRN PRN Reason: NAUSEA OR VOMITING Patch Removal (Remove Old Patch) 1 each T-DERMAL DAILY [facility] Last Admin: 08/20/18 09:30 Dose: Not Given Senna/Docusate Sodium (Brenda-Colace) 1 tab PO BID [facility] Last Admin: 08/20/18 21:17 Dose: 1 tab Sennosides (Senokot) 17.2 mg PO Q12H PRN PRN Reason: Moderate Constipation Sodium Chloride (Ns Flush) 2 ml IV.FLUSH PRN PRN PRN Reason: FLUSH AFTER USING IV ACCESS Sodium Chloride (Ns Flush) 2 ml IV.FLUSH BID [facility] Last Admin: 08/20/18 21:18 Dose: 2 ml Sodium Chloride (Ns Flush) 2 ml IV.FLUSH PRN PRN PRN Reason: FLUSH AFTER USING IV ACCESS Allergies/Adverse Reactions: Allergies Allergy/AdvReac Type Severity Reaction Status Date / Time No Known Allergies Allergy Verified 08/19/18 10:47 Physical Exam Vital signs: Vital Signs 08/20/18 08:00 08/20/18 08:44 08/20/18 12:00 Temperature 98.3 F 97.6 F Pulse Rate 78 76 84 Respiratory Rate 18 16 16 Blood Pressure 131/70 119/67 Pulse Oximetry 92 L 99 92 L 08/20/18 15:15 08/20/18 16:00 08/20/18 20:00 Temperature 98.5 F 98.3 F Pulse Rate 79 87 87 Respiratory Rate 16 16 18 Blood Pressure 126/67 135/82 Pulse Oximetry 97 95 08/20/18 20:50 08/21/18 00:00 08/21/18 04:00 Temperature 97.9 F 97.3 F L Pulse Rate 80 77 86 Respiratory Rate 16 16 16 Blood Pressure 133/76 115/61 Pulse Oximetry 99 92 L 93 L Intake & Output 08/20/18 08/21/18 08/21/18 18:59 06:59 18:59 Intake Total 1490 / 1490 Output Total 825 / 825 Balance 1490 / 1490 -825 / -825 Weight 81.2 kg Intake: IV 250 / 250 Azithromycin Inj 500 MG In NS 250 / 250 Inj 250 ML @ 250 mls/hr IV.SIG Q24H [facility] Rx#:[id number] Oral 1240 / 1240 Output: Urine 825 / 825 Other: # Voids 4 Date of Last Bowel Movement 08/19/18 Narrative: vff face sym 5/5 t/o Objective Laboratory Results - last 24 hr 08/20/18 07:00 Sodium 140 Potassium 4.1 Chloride 108 H Carbon Dioxide 23.1 Anion Gap 9 BUN 15 Creatinine 1.33 H Estimated GFR 53 L Random Glucose 84 Calcium 8.0 L Total Bilirubin 1.0 AST 13 L ALT 17 Alkaline Phosphatase 130 H Total Protein 6.7 D Albumin 3.1 L Review/Management - Review/Management Plan: imp c spine neg b12 pend plz fu this he can dc home and if still dizzy get o/p vest rehab for r bpv neurowise will sign off call me if ?
[2018-08-21] MEDS: Metoprolol Tartrate 25 MG Tablet PO SCH ×2 (09:18→22:33)
[2018-08-21] MEDS: Senna/Docusate Sodium 8.6/50 MG Tablet PO SCH ×2 (09:18→22:34)
[2018-08-21] MEDS: MethylPREDNISolone Sod Succinate Inj 40 MG/ML Vial IV.PUSH SCH ×2 (09:18→22:33)
[2018-08-21] MEDS: Budesonide-Formoterol 160/4.5 MCG 6 GM Inhaler INH SCH ×2 (09:18→22:34)
[2018-08-21] MEDS: Aspirin 325 MG Tablet PO SCH (09:27)
[2018-08-21] MEDS: Enoxaparin Inj 30 MG/0.3 ML Syringe SQ SCH (09:27)
[2018-08-21] MEDS: Lisinopril 5 MG Tablet PO SCH (09:28)
[2018-08-21] MEDS: Sodium Chloride 0.9% 2 ML Flush BID IV.FLUSH SCH ×2 (09:28→22:34)
--- NOTE | 2018-08-21 15:15 | P.PN ---
Subjective Interval history: Follow-up for COPD exacerbation, right lower lobe lung mass concerning for bronchogenic carcinoma. Patient is doing well. By mistake, he had breakfast and thus CT guided lung bx was postponed. No acute concerns. On room air. Physical Exam Vital signs: Vital Signs 08/20/18 16:00 08/20/18 20:00 08/20/18 20:50 Temperature 98.5 F 98.3 F Pulse Rate 87 87 80 Respiratory Rate 16 18 16 Blood Pressure 126/67 135/82 Pulse Oximetry 97 95 99 08/21/18 00:00 08/21/18 04:00 08/21/18 07:00 Temperature 97.9 F 97.3 F L Pulse Rate 77 86 93 H Respiratory Rate 16 16 12 Blood Pressure 133/76 115/61 Pulse Oximetry 92 L 93 L 94 L 08/21/18 08:00 08/21/18 12:00 08/21/18 13:00 Temperature 98.5 F 98.4 F Pulse Rate 88 82 81 Respiratory Rate 18 18 14 Blood Pressure 112/63 117/59 L Pulse Oximetry 96 95 Intake & Output 08/20/18 08/21/18 08/21/18 18:59 06:59 18:59 Intake Total 1490 / 1490 Output Total 825 / 825 Balance 1490 / 1490 -825 / -825 Weight 81.2 kg Intake: IV 250 / 250 Azithromycin Inj 500 MG In NS 250 / 250 Inj 250 ML @ 250 mls/hr IV.SIG Q24H [facility] Rx#:[id number] Oral 1240 / 1240 Output: Urine 825 / 825 Other: # Voids 4 Date of Last Bowel Movement 08/19/18 Narrative: GENERAL: Alert, NAD. SKIN: Warm and dry. HEAD: Normocephalic. EYES: No scleral icterus. No injection or drainage. NECK: Supple, trachea midline. No JVD or lymphadenopathy. CARDIOVASCULAR: Regular rate and rhythm without murmurs, gallops, or rubs. RESPIRATORY: Moderate air entry, breath sounds somewhat coarse anteriorly, diminished diffusely in the posterior lung peck. GASTROINTESTINAL: Abdomen soft, non-tender, nondistended. MUSCULOSKELETAL: No cyanosis, or edema. BACK: Nontender without obvious deformity. No CVA tenderness. Results - Labs CBC & Chem 7: 08/20/18 07:00 08/20/18 07:00 Laboratory Results - last 24 hr 08/21/18 10:39 Vitamin B12 255 - Imaging Impressions Cervical Spine MRI 08/20/18 00:00 CONCLUSION: 1. Mild degenerative disc disease and slight exaggeration of normal cervical lordosis but without evidence for significant canal stenosis or cord impingement. No fracture or spondylolisthesis. - Procedures Echo 08/20/2018 The left ventricular systolic function is low normal with an estimated ejection fraction in the range of 50- 55%. Normal left ventricular size. Wall thickness is normal. Trace mitral valve regurgitation. There is mild tricuspid valve regurgitation. The estimated pulmonary arterial pressure is 29.9 mmHg. Assessment and Plan - Plan Mr. Newton is a pleasant 73-year-old male who was admitted to the hospital due to dizziness that has been getting worse. Patient has a history of CAD and he is being evaluated for CABG next month. ED workup indicated right lower lobe lung mass. Pulmonary was consulted. Acute COPD exacerbation Right lung mass -Right lower lobe spiculated noncalcified mass 2.8 x 3.1 x 3.1 cm - concerning for bronchogenic carcinoma -CT guided biopsy - hopefully tomorrow 08/22/2018. NPO midnight. -DuoNeb, Supplemental O2, Symbicort and Azithromycin. Continue Solu-Medrol. Coronary artery disease -[facility] Cardiology evaluated patient here. -Echo shows EF 50-55%. Continue Aspirin (on hold for now) Hypertension - Continue lisinopril 5 mg daily, metoprolol tartrate 12.5 mg twice daily. Depression - Continue Prozac 20mg Qday. Full code Lovenox 30 mg daily.
--- NOTE | 2018-08-21 19:45 | P.PNPL ---
Subjective Interval history: 73 YOWM with COPD,Nicotine use, CAD Plans for CABG at [facility] Admitted with dizzyness CT chest RLL lung mass Physical Exam Vital signs: Vital Signs 08/20/18 20:00 08/20/18 20:50 08/21/18 00:00 Temperature 98.3 F 97.9 F Pulse Rate 87 80 77 Respiratory Rate 18 16 16 Blood Pressure 135/82 133/76 Pulse Oximetry 95 99 92 L 08/21/18 04:00 08/21/18 07:00 08/21/18 08:00 Temperature 97.3 F L 98.5 F Pulse Rate 86 93 H 88 Respiratory Rate 16 12 18 Blood Pressure 115/61 112/63 Pulse Oximetry 93 L 94 L 96 08/21/18 12:00 08/21/18 13:00 08/21/18 16:00 Temperature 98.4 F 97.9 F Pulse Rate 82 81 76 Respiratory Rate 18 14 20 Blood Pressure 117/59 L 132/80 Pulse Oximetry 95 98 Intake & Output 08/21/18 08/21/18 08/22/18 06:59 18:59 06:59 Intake Total 480 / 480 Output Total 825 / 825 300 / 300 Balance -825 / -825 180 / 180 Weight 81.2 kg Intake: Oral 480 / 480 Output: Urine 825 / 825 300 / 300 Other: # Voids 1 Date of Last Bowel Movement 08/19/18 # Bowel Movements 2 GENERAL: Elderly WM, NAD SKIN: Warm and dry. HEAD: Normocephalic. EYES: No scleral icterus. No injection or drainage. NECK: Supple, trachea midline. No JVD or lymphadenopathy. CARDIOVASCULAR: Regular rate and rhythm without murmurs, gallops, or rubs. RESPIRATORY: Breath sounds equal bilaterally. No accessory muscle use. GASTROINTESTINAL: Abdomen soft, non-tender, nondistended. MUSCULOSKELETAL: No cyanosis, or edema. BACK: Nontender without obvious deformity. No CVA tenderness. Assessment and Plan - Plan IMPRESSION: Rt lung mass, likly ca COPD Nicotine use CAD Dizzyness PLAN: Aerosol nebs IV Solumedrol CT guided rt lung bx in AM
[2018-08-21] MEDS: Azithromycin Inj 500 MG in Sodium Chlor 0.9% Inj 250 ML IV.SIG SCH (22:33)
--- NOTE | 2018-08-22 09:43 | P.PN ---
Subjective Interval history: Follow-up for COPD exacerbation, right lower lobe lung mass concerning for bronchogenic carcinoma. Patient was seen in the morning. He was waiting for CT -guided lung biopsy today. Patient underwent lung biopsy later in the day. Radiologist stated tiny pneumothorax. Physical Exam Vital signs: Vital Signs 08/21/18 12:00 08/21/18 13:00 08/21/18 16:00 Temperature 98.4 F 97.9 F Pulse Rate 82 81 76 Respiratory Rate 18 14 20 Blood Pressure 117/59 L 132/80 Pulse Oximetry 95 98 08/21/18 19:16 08/21/18 20:02 08/21/18 20:57 Temperature 98.7 F Pulse Rate 76 75 70 Respiratory Rate 19 18 Blood Pressure 133/65 Pulse Oximetry 95 93 L 08/21/18 23:29 08/22/18 00:00 08/22/18 03:45 Temperature 97.8 F 96.8 F L Pulse Rate 88 70 81 Respiratory Rate 18 18 Blood Pressure 135/67 131/68 Pulse Oximetry 92 L 92 L 08/22/18 04:00 08/22/18 07:49 08/22/18 08:00 Temperature 98.3 F Pulse Rate 69 88 78 Respiratory Rate 16 18 Blood Pressure 114/62 Pulse Oximetry 94 L 97 Intake & Output 08/21/18 08/22/18 08/22/18 18:59 06:59 18:59 Intake Total 480 / 480 250 / 250 Output Total 300 / 300 Balance 180 / 180 250 / 250 Weight 81.2 kg Intake: IV 250 / 250 Azithromycin Inj 500 MG In NS 250 / 250 Inj 250 ML @ 250 mls/hr IV.SIG Q24H [facility] Rx#:[id number] Oral 480 / 480 0 / 0 Output: Urine 300 / 300 Other: # Voids 1 3 Date of Last Bowel Movement 08/21/18 08/21/18 # Bowel Movements 2 3 Narrative: GENERAL: Alert, NAD. SKIN: Warm and dry. HEAD: Normocephalic. EYES: No scleral icterus. No injection or drainage. NECK: Supple, trachea midline. No JVD or lymphadenopathy. CARDIOVASCULAR: Regular rate and rhythm without murmurs, gallops, or rubs. RESPIRATORY: Moderate air entry, breath sounds somewhat coarse anteriorly, diminished diffusely in the posterior lung peck. GASTROINTESTINAL: Abdomen soft, non-tender, nondistended. MUSCULOSKELETAL: No cyanosis, or edema. BACK: Nontender without obvious deformity. No CVA tenderness. Results - Labs CBC & Chem 7: 08/20/18 07:00 08/20/18 07:00 Laboratory Results - last 24 hr 08/21/18 10:39 Vitamin B12 255 - Procedures Echo 08/20/2018 The left ventricular systolic function is low normal with an estimated ejection fraction in the range of 50- 55%. Normal left ventricular size. Wall thickness is normal. Trace mitral valve regurgitation. There is mild tricuspid valve regurgitation. The estimated pulmonary arterial pressure is 29.9 mmHg. Assessment and Plan - Plan Mr. Newton is a pleasant 73-year-old male who was admitted to the hospital due to dizziness that has been getting worse. Patient has a history of CAD and he is being evaluated for CABG next month. ED workup indicated right lower lobe lung mass. Pulmonary was consulted. Acute COPD exacerbation Right lung mass -Right lower lobe spiculated noncalcified mass 2.8 x 3.1 x 3.1 cm - concerning for bronchogenic carcinoma -CT guided biopsy performed today 08/22/2018. Tiny pneumothorax post biopsy. -DuoNeb, Supplemental O2, Symbicort and Azithromycin. Continue Solu-Medrol. -Patient can follow up with pulmonology in the outpatient setting regarding Bx results. Coronary artery disease -[facility] Cardiology evaluated patient here. -Echo shows EF 50-55%. Continue Aspirin (on hold for now) Hypertension - Continue lisinopril 5 mg daily, metoprolol tartrate 12.5 mg twice daily. Depression - Continue Prozac 20mg Qday. Full code Lovenox 30 mg daily. Possible discharge on 08/23/2018 If Pneumothorax remains stable or resolves.
[2018-08-22] MEDS: FLUoxetine 20 MG Capsule PO SCH (10:10)
[2018-08-22] MEDS: Metoprolol Tartrate 25 MG Tablet PO SCH ×2 (10:11→20:13)
[2018-08-22] MEDS: Lisinopril 5 MG Tablet PO SCH (10:11)
--- NOTE | 2018-08-22 11:06 | P.PNPL ---
Subjective Interval history: YOWM with COPD, Lung mass, CAD Planning for CABG at [place] Breathing betetr No CP or sob Physical Exam Vital signs: Vital Signs 08/21/18 12:00 08/21/18 13:00 08/21/18 16:00 Temperature 98.4 F 97.9 F Pulse Rate 82 81 76 Respiratory Rate 18 14 20 Blood Pressure 117/59 L 132/80 Pulse Oximetry 95 98 08/21/18 19:16 08/21/18 20:02 08/21/18 20:57 Temperature 98.7 F Pulse Rate 76 75 70 Respiratory Rate 19 18 Blood Pressure 133/65 Pulse Oximetry 95 93 L 08/21/18 23:29 08/22/18 00:00 08/22/18 03:45 Temperature 97.8 F 96.8 F L Pulse Rate 88 70 81 Respiratory Rate 18 18 Blood Pressure 135/67 131/68 Pulse Oximetry 92 L 92 L 08/22/18 04:00 08/22/18 07:49 08/22/18 08:00 Temperature 98.3 F Pulse Rate 69 88 78 Respiratory Rate 16 18 Blood Pressure 114/62 Pulse Oximetry 94 L 97 Intake & Output 08/21/18 08/22/18 08/22/18 18:59 06:59 18:59 Intake Total 480 / 480 250 / 250 Output Total 300 / 300 Balance 180 / 180 250 / 250 Weight 81.2 kg Intake: IV 250 / 250 Azithromycin Inj 500 MG In NS 250 / 250 Inj 250 ML @ 250 mls/hr IV.SIG Q24H [facility] Rx#:[id number] Oral 480 / 480 0 / 0 Output: Urine 300 / 300 Other: # Voids 1 3 Date of Last Bowel Movement 08/21/18 08/21/18 08/22/18 # Bowel Movements 2 3 GENERAL: Elderly Wm NAD SKIN: Warm and dry. HEAD: Normocephalic. EYES: No scleral icterus. No injection or drainage. NECK: Supple, trachea midline. No JVD or lymphadenopathy. CARDIOVASCULAR: Regular rate and rhythm without murmurs, gallops, or rubs. RESPIRATORY: Breath sounds equal bilaterally. No accessory muscle use. GASTROINTESTINAL: Abdomen soft, non-tender, nondistended. MUSCULOSKELETAL: No cyanosis, or edema. BACK: Nontender without obvious deformity. No CVA tenderness. Assessment and Plan - Plan IMPRESSION: Rt lung mass, likly ca COPD Nicotine use CAD Dizzyness PLAN: Aerosol nebs IV Solumedrol CT guided rt lung bx today
[2018-08-22] MEDS: Sod Chloride 0.9% Inj 1,000 ML IV.SIG SCH ×2 (11:59→17:50)
[2018-08-22] MEDS: MethylPREDNISolone Sod Succinate Inj 40 MG/ML Vial IV.PUSH SCH ×2 (12:01→20:11)
[2018-08-22] MEDS ORDERED: fentaNYL Citrate Inj 250 MCG/5 ML Ampul ONE (12:40)
--- NOTE | 2018-08-22 14:12 | P.RAD ---
Post Procedure Progress Note - Pre Procedure Diagnosis (1) Lung mass - Post Procedure Diagnosis (1) Lung mass - Procedure Information Procedure Date: 08/22/18 Supervising Radiologist: Enio Cevallos MD Estimated blood loss (mL): 0 Anesthesia: Local, Conscious Sedation - Plan of Activity Patient Condition: Good Additional Comments: Post right lung biopsy 2 18 gauge core samples taken Tiny PTX post procedure Full dictated report to follow See PACS Report for procedural detail/treatment.
[2018-08-22] MEDS: Enoxaparin Inj 30 MG/0.3 ML Syringe SQ SCH (16:09)
[2018-08-22] MEDS: Sodium Chloride 0.9% 2 ML Flush BID IV.FLUSH SCH ×2 (16:09→20:17)
[2018-08-22] MEDS: Senna/Docusate Sodium 8.6/50 MG Tablet PO SCH ×2 (16:09→20:19)
[2018-08-22] MEDS: Budesonide-Formoterol 160/4.5 MCG 6 GM Inhaler INH SCH ×2 (16:10→20:20)
--- NOTE | 2018-08-22 16:38 | XR ---
EXAM DATE: 08/22/2018 4:30 PM EDT AGE/SEX: 73 years / Male INDICATIONS: Post right lower lung biopsy. CLINICAL DATA: This is the patient's subsequent encounter. Patient reports that signs and symptoms h ave been present for 1 day and indicates a pain score of 2/10. MEDICAL/SURGICAL HISTORY: Hypertension. Chronic obstructive pulmonary disease. None. COMPARISON: [facility] [place], CHEST 1V SINGLE AP, 08/19/2018. . FINDINGS: The heart and mediastinum unremarkable. There is some mild airspace disease right midlung zone and ri ght lung base. Mild diffuse interstitial prominence. No visible pneumothorax. CONCLUSION: The patient has a suspected right lung mass. No evidence of pneumothorax Electronically signed by: Slava Ugalde MD 08/22/2018 4:37 PM EDT
[2018-08-22] MEDS: Azithromycin Inj 500 MG in Sodium Chlor 0.9% Inj 250 ML IV.SIG SCH (17:47)
[2018-08-23] MEDS: MethylPREDNISolone Sod Succinate Inj 40 MG/ML Vial IV.PUSH SCH ×2 (00:37→08:59)
[2018-08-23] MEDS: Sod Chloride 0.9% Inj 1,000 ML IV.SIG SCH (07:29)
[2018-08-23 08:15] VITALS: RESP 18
[2018-08-23] MEDS: Lisinopril 5 MG Tablet PO SCH (08:53)
[2018-08-23] MEDS: Sodium Chloride 0.9% 2 ML Flush BID IV.FLUSH SCH (08:53)
[2018-08-23] MEDS: FLUoxetine 20 MG Capsule PO SCH (08:53)
[2018-08-23] MEDS: Enoxaparin Inj 30 MG/0.3 ML Syringe SQ SCH (08:54)
[2018-08-23] MEDS: Metoprolol Tartrate 25 MG Tablet PO SCH (08:54)
[2018-08-23] MEDS: Budesonide-Formoterol 160/4.5 MCG 6 GM Inhaler INH SCH (08:55)
--- NOTE | 2018-08-23 09:04 | CT ---
EXAM DATE: 08/22/2018 3:42 PM EDT AGE/SEX: 73 years / Male INDICATIONS: Right lung mass. CLINICAL DATA: This is the patient's initial encounter. Patient reports that signs and symptoms have been present for 1 day and indicates a pain score of 0/10. MEDICAL/SURGICAL HISTORY: Chronic obstructive pulmonary disease. Hypertension. Cardiovascular disease. None. COMPARISON: [facility], CT CHEST W/O CONTRAST, 08/19/2018. . BIOPSY SITE: Right lung MEDICATION(S): 2.5mg midazolam (Versed) IV 75mcg fentanyl (Sublimaze) IV DEVICE(S): 17 gauge Introducer 18 gauge BARD biopsy needle Two core specimen(s) sent to the laboratory for pathologic evaluation. PROCEDURE: CT guided Right lung biopsy Prior to the procedure informed consent was obtained. Any appropriate prior imaging studies were rev iewed. Using automated exposure control and adjustment of the mA and/or kV according to patient size , radiation dose was kept as low as reasonably achievable to obtain optimal diagnostic quality images . DICOM format image data is available electronically for review and comparison. The site was prepped in a sterile fashion. Full sterile technique was used, including cap, mask, blaire rile gloves and gown and a large sterile sheet. Hand hygiene and 2% chlorhexidine and/or betadine/al cohol prep was utilized per protocol for cutaneous antisepsis. The skin and subcutaneous tissues wer e infiltrated with local anesthetic solution. With CT guidance the previously identified target was localized. Biopsy was performed using the presc ribed needle as above. Adequate hemostasis was obtained with compression at the puncture site. Follow-up CT scan reveals no pneumothorax. Conscious sedation was performed with the prescribed dosages and duration as above in the presence of an independent trained radiology nurse to assist in the monitoring of the patient. EKG and oximetry remained stable throughout the procedure. The patient tolerated the procedure well and there were no complications. The patient was sent to Radiology Outpatient Unit in stable condition. CONCLUSION: 1. Uncomplicated CT guided biopsy. Electronically signed by: Enio Cevallos MD 08/23/2018 9:02 AM EDT
[2018-08-23] MEDS: Senna/Docusate Sodium 8.6/50 MG Tablet PO SCH (09:07)
--- NOTE | 2018-08-23 14:58 | P.DCO ---
- Diagnosis (1) Orthostatic hypotension Status: Acute (2) Dizziness Status: Acute (3) Lung mass Status: Acute (4) Hypoxia Status: Acute - Home Health Nursing Order: Medical education, Signs/symptoms of disease process, Medication education-adverse effect, Nursing assessment with vital signs - Case Management Consult Yes - Certification I have seen patient Jori Newton on 08/23/18. My clinical findings support the need for the requested home health care services because: Limited mobility due to disease progression, Deconditioned with increased weakness, Limited ability to care for self I certify that my clinical findings support that this patient is homebound because: Post-op weakness, Unsteady gait/balance
--- NOTE | 2018-08-23 16:20 | P.PNPL ---
Subjective Interval history: YOWM with COPD, Lung mass, CAD Planning for CABG at [place] Breathing betetr No CP or sob Had CT guided Lung bx Path showes no malignancy Physical Exam Vital signs: Vital Signs 08/22/18 20:00 08/23/18 00:00 08/23/18 04:00 Temperature 97.8 F 97.5 F L 97.8 F Pulse Rate 80 80 77 Respiratory Rate 17 17 17 Blood Pressure 143/75 H 132/73 126/75 Pulse Oximetry 94 L 92 L 93 L 08/23/18 08:00 08/23/18 08:14 08/23/18 12:00 Temperature 98.0 F 98.5 F Pulse Rate 69 77 68 Respiratory Rate 18 18 18 Blood Pressure 139/75 158/76 H Pulse Oximetry 94 L 94 L 96 08/23/18 13:40 Temperature Pulse Rate 81 Respiratory Rate 18 Blood Pressure Pulse Oximetry Intake & Output 08/22/18 08/23/18 08/23/18 18:59 06:59 18:59 Intake Total 1000 / 1000 400 / 400 1250 / 1250 Balance 1000 / 1000 400 / 400 1250 / 1250 Weight 79.3 kg Intake: IV 1000 / 1000 1250 / 1250 Azithromycin Inj 500 MG In NS 250 / 250 Inj 250 ML @ 250 mls/hr IV.SIG Q24H TIMOTHY Rx#:[id number] NS Inj 1,000 ML @ 100 mls/hr IV 1000 / 1000 .SIG .Q10H TIMOTHY Rx#:[id number] Oral 400 / 400 Other: # Voids 400 Date of Last Bowel Movement 08/22/18 08/22/18 GENERAL: WBWN,NAD SKIN: Warm and dry. HEAD: Normocephalic. EYES: No scleral icterus. No injection or drainage. NECK: Supple, trachea midline. No JVD or lymphadenopathy. CARDIOVASCULAR: Regular rate and rhythm without murmurs, gallops, or rubs. RESPIRATORY: Breath sounds equal bilaterally. No accessory muscle use. GASTROINTESTINAL: Abdomen soft, non-tender, nondistended. MUSCULOSKELETAL: No cyanosis, or edema. BACK: Nontender without obvious deformity. No CVA tenderness. Assessment and Plan - Plan IMPRESSION: Rt lung mass, likly ca COPD Nicotine use CAD Dizzyness PLAN: Aerosol nebs PO Steroids Anxious to go home DW pt bx result Will need rpt CT chest for FU lung mass He wants to FU at [facility] with Dr.Sandra Madrid.
--- NOTE | 2018-08-23 16:34 | P.DS ---
Date of admission: 08/19/18 13:33 Primary care physician: [facility] Attending physician on discharge: Conrad West Anticipated date of discharge: 08/23/18 Brief History from admission: 73-year-old male presents to the emergency department via EMS for evaluation of dizziness. Patient states he was standing waiting for the past when he felt dizzy around 845 this morning.Patient states that he took a nitro which did not improve his dizziness. Patient then went home and took 2 more nitro which also did not improve his dizziness.Patient states that he feels like he is "swimming ". He denies any syncope. States he had a hard time walking to the dizziness. He does report an episode of vomiting and diarrhea. Patient denies any chest pain or shortness breath. No headache. No abdominal pain. He reports generalized weakness. Patient states he has history of cardiac stents. [facility] which he states showed severe disease. Patient states that he is due to have a CABG the week of which is to be scheduled. He states that he recently had a carotid ultrasound, but does not know the results. He is due to have an echocardiogram next month. His clinical research physician is with the [place]. Patient states that he has had small episodes of dizziness that lasted a few seconds in the past, but is never had dizziness like this that lasted so long. Patient reports chronic "smoker's cough". He denies any fevers or chills. Moderate severity. Reports sense of movement, "room spinning", off-balance and difficulty walking Associated symptoms: Reports weakness, nausea and vomiting; Denies chest pain, confusion, diaphoresis, fever, chills, rash, shortness of breath, syncope and vision changes Family history: Father melanoma, at the age of 89 hasd [place] Mother breast CA at 86 ya Brother kidney stones Sister of [place] at age of 52, also had lupus and scarlet fever as a chils Patient update on day of discharge: Follow-up for COPD exacerbation, right lower lobe lung mass concerning for bronchogenic carcinoma. Patient seen and examined sitting in the chair, patient stated he is ready to go home, denies any chest pain or shortness of breath. Patient stated [facility] is [facility] and follow-up with a primary care at the. He said he had a planned surgery/open heart surgery in [place] [facility] and [place]. Patient denies any headache or dizziness, denies chest pain or shortness of breath, abdominal pain any fever. He denies using any oxygen. DS: Diagnosis - Discharge Diagnosis (1) Orthostatic hypotension Status: Acute (2) Dizziness Status: Acute (3) Lung mass Status: Acute (4) Hypoxia Status: Acute DS: Summary Hospital Course: Mr. Newton is a pleasant 73-year-old male who was admitted to the hospital due to dizziness that has been getting worse. Patient has a history of CAD and he is being evaluated for CABG next month. ED workup indicated right lower lobe lung mass. Pulmonary was consulted. Patient admitted history of COPD admitted acute COPD exacerbation, with incidental finding of Right lung mass. Right lower lobe spiculated noncalcified mass 2.8 x 3.1 x 3.1 cm - concerning for bronchogenic carcinoma.CT guided biopsy performed 08/22/2018. Tiny pneumothorax post biopsy. Results showed The pigmented cells in alveolar spaces may contain hemosiderin. This could be seen in a hemorrhagic lung process or in heart failure. Clinical correlation is suggested.. Patient also had a coronary artery disease that [facility], 2D Echo done and shows EF 50-55%. Plan to discharge home today with home health care and [facility] with the [facility]. Follow-up with road mixer operator. Follow-up with clinical research physician. - Time Spent with Patient Total time spent providing and/or coordinating discharge services: Greater than 30 minutes - Quality: VTE Deep Vein Thrombosis/Pulmonary Embolism Present on Admission: No Exam Vital signs: Vital Signs 08/22/18 20:00 08/23/18 00:00 08/23/18 04:00 Temperature 97.8 F 97.5 F L 97.8 F Pulse Rate 80 80 77 Respiratory Rate 17 17 17 Blood Pressure 143/75 H 132/73 126/75 Pulse Oximetry 94 L 92 L 93 L 08/23/18 08:00 08/23/18 08:14 08/23/18 12:00 Temperature 98.0 F 98.5 F Pulse Rate 69 77 68 Respiratory Rate 18 18 18 Blood Pressure 139/75 158/76 H Pulse Oximetry 94 L 94 L 96 08/23/18 13:40 Temperature Pulse Rate 81 Respiratory Rate 18 Blood Pressure Pulse Oximetry Intake & Output 1008/23/18 08/23/18 18:59 06:59 18:59 Intake Total 1000 / 1000 400 / 400 1250 / 1250 Balance 1000 / 1000 400 / 400 1250 / 1250 Weight 79.3 kg Intake: IV 1000 / 1000 1250 / 1250 Azithromycin Inj 500 MG In NS 250 / 250 Inj 250 ML @ 250 mls/hr IV.SIG Q24H TIMOTHY Rx#:[id number] NS Inj 1,000 ML @ 100 mls/hr IV 1000 / 1000 .SIG .Q10H TIMOTHY Rx#:[id number] Oral 400 / 400 Other: # Voids 400 Date of Last Bowel Movement 08/22/18 08/22/18 Narrative: GENERAL: Well-developed, well-nourished, male in no apparent distress SKIN: Warm and dry. HEAD: Atraumatic. Normocephalic. EYES: Pupils equal and round. No scleral icterus. No injection or drainage. ENT: No nasal bleeding or discharge. Mucous membranes pink and moist. NECK: Trachea midline. No JVD. CARDIOVASCULAR: Regular rate and rhythm. RESPIRATORY: No accessory muscle use. Clear and diminished to auscultation. Breath sounds equal bilaterally. GASTROINTESTINAL: Abdomen soft, non-tender, nondistended. Hepatic and splenic margins not palpable. MUSCULOSKELETAL: Extremities without clubbing, cyanosis, or edema. No obvious deformities. NEUROLOGICAL: Awake and alert. No obvious cranial nerve deficits. Motor grossly within normal limits. Five out of 5 muscle strength in the arms and legs. Normal speech. PSYCHIATRIC: Appropriate mood and affect; insight and judgment normal. Results Procedures completed during hospitalization: Echo 08/20/2018 The left ventricular systolic function is low normal with an estimated ejection fraction in the range of 50- 55%. Normal left ventricular size. Wall thickness is normal. Trace mitral valve regurgitation. There is mild tricuspid valve regurgitation. The estimated pulmonary arterial pressure is 29.9 mmHg. Labs on day of discharge: Labs from last 24 hours 08/21/18 10:39 Methylmalonic Acid 0.34 - Impressions ITS Impressions Head CT 08/19/18 11:17 CONCLUSION: No acute intracranial abnormality is identified. . Chest CT 08/19/18 12:07 CONCLUSION: 1. Spiculated noncalcified mass within the right lower lobe measuring 2.8 x 3.1 x 3.1 cm consistent with bronchogenic carcinoma until proven otherwise. This lesion is amenable to percutaneous biopsy if requested. 2. Scattered emphysematous changes. 3. Posterior bibasilar atelectatic changes. 4. Biapical pleural thickening. 5. Coronary artery ossification. 6. 9.6 cm cystic lesion in the expected region of the upper pole of the right kidney. 7. Small hiatal hernia. 8. Degenerative changes throughout the thoracic spine. Carotid Doppler Study 08/20/18 00:00 CONCLUSION: No evidence of flow-limiting carotid stenosis. Cervical Spine MRI 08/20/18 00:00 CONCLUSION: 1. Mild degenerative disc disease and slight exaggeration of normal cervical lordosis but without evidence for significant canal stenosis or cord impingement. No fracture or spondylolisthesis. Head MRI 08/20/18 00:00 CONCLUSION: 1. No acute intracranial abnormality is identified. 2. Chronic changes include generalized atrophy and mild periventricular white matter change characteristic of chronic microvascular ischemia. Head MRA 08/20/18 00:00 CONCLUSION: No acute intracranial vascular abnormality is identified. Neck MRA 08/20/18 00:00 CONCLUSION: 1. Eccentric narrowing likely related to atherosclerotic plaque in the left carotid bulb and proximal internal carotid artery with estimated 40% stenosis. 2. Minimal atherosclerotic disease in the right carotid bulb. There is no significant stenosis on the right. Percent stenosis is calculated using the diameter of the stenotic region over the diameter of the normal distal internal carotid artery Lung Biopsy CT 08/22/18 00:00 CONCLUSION: 1. Uncomplicated CT guided biopsy. Chest X-Ray 08/22/18 14:09 CONCLUSION: The patient has a suspected right lung mass. No evidence of pneumothorax Discharge Plan - Discharge Disposition Patient Disposition: W/Home Health Service - Discharge Condition Condition: Fair - Discharge Order Discharge Orders: Discharge Order (Routine); Ordered 08/23/18 Ordered By: Bee Parkinson - Discharge Details Discharge Comment: [facility] with [facility] - Physicians [facility] Primary Care Provider: [facility] Attending Provider: Conrad West Other Providers: Caitlyn Ryan MD ; Cristi Bernard MD ; Russell Granados MD
[2018-08-23 16:52] VITALS: BP 107/56; PULSE 79; TEMP 98.8; O2SAT 94
== END 2018-08-23 17:46 | disposition home health service (06) ==
LOC: NEPE 10:39 → NEDA 13:33 → N06 14:40 → N07 08-22 16:29
PROVIDERS: ADMIT Hospitalist; ATTEND Hospitalist